=== PATIENT | female | born 1955 | race African-American/Black ===

== ENCOUNTER 2016-07-31 01:53 | Emergency (ER) | payer SELFPAY ==
[2016-07-31] MEDS ORDERED: IPRATROPIUM/ALBUTEROL SULFATE 3 ML AMPUL.NEB NEB ONE (02:17)
[2016-07-31] MEDS ORDERED: methylPREDNISolone SOD SUCC 125 MG/2 ML VIAL IVP ONE (02:17)
[2016-07-31] MEDS ORDERED: 0.9 % SODIUM CHLORIDE 1,000 ML IV ONE (02:20)
[2016-07-31] MEDS ORDERED: BUDESONIDE 0.5MG/2ML AMPUL.NEB NEB ONE (02:20)
[2016-07-31] MEDS ORDERED: 0.9 % SODIUM CHLORIDE 1,000 ML IV SCH (02:30)
[2016-07-31] MEDS ORDERED: BUDESONIDE 0.5MG/2ML AMPUL.NEB NEB SCH (03:00)
[2016-07-31 03:09] LABS: BASOPHILS % 0.5 (0.0-1.5); EOSINOPHILS % 6.8 % (0.0-6.8); LYMPHOCYTES # 1.7 # k/uL (0.6-4.0); MEAN CORPUSCULAR HEMOGLOBIN 26.8 pg (28.0-34.0); MONOCYTES # 0.2 # k/uL (0.0-0.9); MONOCYTES % 3.5 % (0.0-11.0); NEUTROPHILS # 3.5 # k/uL (1.4-7.7)
[2016-07-31 03:23] LABS: eGFR (African) > 60; eGFR (Non-African) 38
[2016-07-31] MEDS ORDERED: POTASSIUM CHLORIDE 20 MEQ TABLET.ER PO ONE (03:30)
[2016-07-31] MEDS ORDERED: CYCLOBENZAPRINE HCL 5 MG TABLET PO ONE (03:30)
[2016-07-31 04:36] VITALS: BP 162/100
--- NOTE | 2016-07-31 05:21 | Diagnostic Imaging Report ---
[facility] [address] [facility].[address] [address] ~ ~ ~ ~ Report Submission Date: Jul 31, 2016 3:04:21 AM [employer] DIRECT[employer] Patient ~ Study Name: TYREE MONET ~ Date: Jul 31, 2016 2:43:23 AM [employer] DIRECTOR ~ Modality Type: CR Gender: F ~ Description: CHEST : 59 ~ Institution: [facility] Physician: ROMEL LEOS ~ ~ ~ ~ Single view chest History: Productive cough Findings: The lungs are hyperinflated without pneumonia or pleural effusion. Heart size and pulmonary vascularity are normal. Osseous structures are unremarkable. There has been no change since the March 04, 2016 exam. Impression: Hyperinflation without change. ~ Electronically signed on Jul 31, 2016 3:04:21 AM [employer]EC[employer] DIRECTOR by: Anupam FLORES
--- NOTE | 2016-07-31 08:00 | ED Physician Documentation ---
Dyspnea - HISTORIAN Historian: patient - HPI Stated Complaint: shortness of breath Chief Complaint: Dyspnea Additional Information: copd, coughing Onset: days ago (2) Duration: continues in ED Initiating Event: other (unknown cause) Severity: moderate Exacerbated By: exertion Associated Symptoms: other (copd cough) Further Comments: no - ROS CONST: no problems EYES/ENT: none GI/: none NEURO/PSYCH: denies: headache MS/SKIN/LYMPH: none - PAST HX Lung Disease: COPD Cardiac Disease: none PE Risk Factors: none Surgeries/Procedures: none Other History: other (htn) Immunizations: referred to PCP Allergies/Adverse Reactions: Allergies Allergy/AdvReac Type Severity Reaction Status Date / Time No Known Allergies Allergy Verified 07/31/16 02:09 Home Medications: Ambulatory Orders Medication Instructions Recorded Nifedipine [Nifedipine Er] 30 mg PO DAILY u2 01/08/16 - SOCIAL HX Smoking History: non-smoker, quit greater than 1 year Alcohol Use: none Drug Use: none - FAMILY HX Family History: no significant history - VITAL SIGNS Vital Signs: Vital Signs Temp Pulse Resp BP Pulse Ox 98.2 F 78 16 162/100 93 07/31/16 04:34 07/31/16 04:34 07/31/16 04:34 07/31/16 04:34 07/31/16 04:34 - REVIEWED ASSESSMENTS Nursing Assessment Reviewed: Yes Vitals Reviewed: Yes Progress - Results/Orders Results/Orders: see orders - Progress Progress: pt improved with tx Critical Care Note - Critical Care Note Total Time (mins): 0 ED Results Lab/Radiology - Lab Results Lab Results: Lab Results 07/31/16 07/31/16 02:17 02:17 WBC 6.00 K/ul K/ul (4.00-12.00) RBC 4.43 M/ul M/ul (3.90-5.20) Hgb 11.9 g/dL L g/dL (12.0-16.0) Hct 35.8 % % (34.5-46.5) MCV 81.0 fl fl (80.0-100.0) MCH 26.8 pg L pg (28.0-34.0) MCHC 33.1 g/dL g/dL (30.0-36.0) RDW 13.1 % % (11.3-14.3) Plt Count 278 K/mm3 K/mm3 (130-400) Neut % (Auto) 58.4 % % (39.0-79.0) Lymph % (Auto) 29.2 % % (16.0-50.0) [place] % (Auto) 3.5 % % (0.0-11.0) Eos % (Auto) 6.8 % % (0.0-6.8) Baso % (Auto) 0.5 (0.0-1.5) Neut # 3.5 # k/uL # k/uL (1.4-7.7) Lymph # 1.7 # k/uL # k/uL (0.6-4.0) [place] # 0.2 # k/uL # k/uL (0.0-0.9) Eos # 0.4 # k/uL # k/uL (0.0-0.6) Baso # 0.0 # k/uL # k/uL (0.0-0.5) Reactive Lymphs % 1.7 % % (0.0-5.0) Reactive Lymphs # 0.1 # k/uL # k/uL (0.0-0.8) Sodium 141 mmol/L mmol/L (136-145) Potassium 3.2 mmol/L L mmol/L (3.5-5.0) Chloride 114 mmol/L H mmol/L (98-110) Carbon Dioxide 28 mmol/L mmol/L (20-32) BUN 14 mg/dL mg/dL (10-26) Creatinine 1.5 mg/dL mg/dL (0.4-1.5) Estimated Creat Clear 138 Est GFR ( Amer) > 60 (60 - ) Est GFR (Non-Af Amer) 38 L (60 - ) Glucose 132 mg/dL H mg/dL (70-99) Calcium 9.5 mg/dL mg/dL (8.5-10.5) Total Bilirubin 0.3 mg/dL mg/dL (0.2-1.2) AST 31 U/L U/L (0-41) ALT 20 U/L U/L (0-45) Alkaline Phosphatase 87 U/L U/L (46-116) Total Protein 6.3 g/dL g/dL (6.0-8.5) Albumin 3.2 g/dL g/dL (3.0-5.5) - Radiology Radiology Impressions: cxr copd - Orders Orders: ED Orders Category Date Time Status Place Saline Lock/IV Now Care 07/31/16 02:17 Active CHEST 1 VIEW [RAD] Routine Exams 07/31/16 Completed CBC/PLATELET/DIFF Routine Lab 07/31/16 02:17 Completed CMP Routine Lab 07/31/16 02:17 Completed 0.9 % Sodium Chloride [Normal Saline] 1,000 ml Med 07/31/16 02:30 Discontinued IV .Q1H 0.9 % Sodium Chloride [Normal Saline] 1,000 ml Med 07/31/16 02:20 Discontinued IV .STK-MED Budesonide [Pulmicort] Med 07/31/16 02:20 Discontinued 0.5 mg NEB .STK-MED ONE Budesonide [Pulmicort] Med 07/31/16 03:00 Discontinued 0.5 mg NEB BID Cyclobenzaprine HCl [Flexeril] Med 07/31/16 03:30 Discontinued 5 mg PO NOW ONE Ipratropium/Albuterol Sulfate [Duoneb] Med 07/31/16 02:17 Discontinued 3 ml NEB NOW ONE Potassium Chloride [Klor-Con M20] Med 07/31/16 03:30 Discontinued 40 meq PO NOW ONE methylPREDNISolone SOD SUCC [Solu-MEDROL] Med 07/31/16 02:17 Discontinued 125 mg IVP NOW ONE Dyspnea Physical Exam - EXAM General Appearance: no acute distress EENT: eye inspection normal, ENT inspection normal, pharynx normal, no signs of dehydration Neck: nml inspection Respiratory: respiratory distress (mild), wheezes CVS: reg. rate & rhythm, no murmur, no gallop, no friction rub, pulses full, pulses equal Abdomen: non-tender, no organomegaly, no distention, no ascites Skin: color nml, no rash Extremities: non-tender, normal range of motion, no evidence of injury, no edema Neuro/Psych: oriented x3, CN's nml as tested, motor nml, mood/affect nml Discharge Clincal Impression: COPD (chronic obstructive pulmonary disease) Qualifiers: COPD type: unspecified COPD Qualified Code(s): J44.9 - Chronic obstructive pulmonary disease, unspecified Home Medications: Ambulatory Orders Nifedipine [Nifedipine Er] 30 mg PO DAILY u2 01/08/16 Comments: discharged with scripts Condition: Stable Disposition: 01 HOME, SELF-CARE Decision to Admit: NO Decision Time: 04:30
== END 2016-07-31 03:45 | disposition home or self-care (01) ==
LOC: ED 01:53
DX: J44.9 Chronic obstructive pulmonary disease, unspecified (principal); Z87.891 Personal history of nicotine dependence
CPT/HCPCS: 71010; 80053; 85025; 94640; A9270; J2930; J7030; J7626; 96374; 99283; 99284; S1016

== ENCOUNTER 2016-08-24 14:58 | Outpatient (CLI) | payer BC ==
[2016-08-24 15:58] LABS: APPEARANCE,URINE Clear (CLEAR); COLOR,URINE Yellow (YELLOW); OCCULT BLOOD,URINE 2+ (NEGATIVE); UROBILINOGEN URINE 0.2 Eu (0.2-1.0)
[2016-08-24 16:12] LABS: AMORPHOUS SEDIMENT,UR FEW (NEGATIVE)
[2016-08-25 01:15] LABS: PROTEIN mg/dL >600 mg/dL
== END 2016-08-24 15:00 ==
LOC: NEPHRO 14:58
PROVIDERS: ATTEND Internal Medicine Nephrology
DX: N18.9 Chronic kidney disease, unspecified (principal); I10 Essential (primary) hypertension; J40 Bronchitis, not specified as acute or chronic
CPT/HCPCS: 81002; 82570; 84156; 99213

== ENCOUNTER 2016-09-14 12:50 | Outpatient (CLI) | payer BC ==
--- NOTE | 2016-09-15 10:56 | CONSULTATION REPORT ---
PULMONARY CONSULTATION NOTE REFERRING PHYSICIAN: Dr. Kyler Hernández CONSULTING PHYSICIAN: Farrukh Wolf MD REASON FOR CONSULT: Shortness of breath. PROBLEM LIST: 1. Asthmatic bronchitis with recurrent shortness of breath and remote history of tobacco abuse. 2. Significant and treated gastroesophageal reflux disease (GERD). 3. Excessive daytime sleepiness, snoring, and witnessed apnea, likely related to obstructive sleep apnea. 4. Chronic kidney disease. 5. Cannot rule out right heart failure with pulmonary hypertension and further workup with cardiac echo if needed. 6. Cough, likely related to GERD and asthma but cannot rule out side effects of lisinopril. 7. Hypertension, on nifedipine. HISTORY OF PRESENT ILLNESS: Sonia is a very pleasant 61-year-old lady who works at [employer]. She has been complaining of shortness of breath and cough toward the last few months and was diagnosed with COPD in the ER, she also has chronic kidney disease and is being followed by Dr. Hernández from [facility] where she had significant volume overload and had been on medication where her blood pressure had been much better controlled and she lost a significant amount of weight related to the volume overload over the last year. She continued to have shortness of breath with activity. She did have a cough and wheezing and chest tightness but she denies any fever or chills. No significant abdominal pain, although she did have some nausea and significant uncontrolled heartburn. She does have daytime sleepiness and fatigue and snoring and witnessed apnea but no weight changes. No trauma to the head. No significant hearing or vision loss or changes. She does have some postnasal drip but she has no sore throat and no thrush. No significant reported changes. PAST MEDICAL HISTORY: 1. Hypertension. 2. Chronic kidney disease. 3. Depression. MEDICATIONS: 1. Nifedipine 30 mg once a day. 2. Clonidine 0.1 mg 3 times a day. 3. Lisinopril 40 mg once a day. 4. Albuterol p.r.n. 5. Sertraline 25 mg once a day. ALLERGIES: No known drug allergies. SOCIAL HISTORY: Patient has a remote history of tobacco abuse of more than a 24-stho-molm history. She did quit a few years ago. She is not . 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 She has had no significant chemical or fume exposure. IMMUNIZATIONS: She did not have her pneumonia vaccine, nor her flu shot last year. FAMILY HISTORY: No significant family history of lung disease. REVIEW OF SYSTEMS: A 12-point review of systems was done and positive only for that listed above in the history of present illness. PHYSICAL EXAMINATION: Vital Signs: T: 97.3, R: 20, heart rate at 74, oxygen saturation is 95% on room air, BP: 149/101. General: Patient is alert, awake, and oriented x3. No significant distress. HEENT: PEERLA. Neck: Supple with full range of motion. Lungs: Prolonged expiratory phase and wheezing. No accessory muscle use. No crackles. Abdomen: Soft and nontender. Extremities: Lower extremities with no cyanosis, poor peripheral pulse. Neurologic Exam: Grossly intact. RADIOLOGY: Chest x-ray showed hyperplasia. No significant infiltration. Pulmonary function test is pending. ASSESSMENT: 1. Asthmatic bronchitis with recurrent shortness of breath and remote history of tobacco abuse. 2. Significant and treated gastroesophageal reflux disease (GERD). 3. Excessive daytime sleepiness, snoring, and witnessed apnea, likely related to obstructive sleep apnea. 4. Chronic kidney disease. 5. Cannot rule out right heart failure with pulmonary hypertension and further workup with cardiac echo if needed. 6. Cough, likely related to GERD and asthma but cannot rule out side effects of lisinopril. 7. Hypertension, on nifedipine. PLAN: This time the working diagnosis is asthmatic bronchitis. The patient is going to benefit from inhaled bronchodilator and inhaled steroids, as a maintenance, I am going to start her on Breo 200 mcg once a day and Incruse once a day. I am going to provide her with a coupon so it is not expensive and she can afford it for the next few months. My concern with her asthmatic bronchitis is that it is poorly controlled because of severe GERD. I am going to start her on omeprazole 40 mg once a day 40 minutes before breakfast for the next few days. If this does not improve her symptoms, we have to stop lisinopril as a possible cause for her significant cough. Regarding her snoring, excessive daytime sleepiness, hypertension and all other risk factors for possible sleep apnea, I am going to obtain a sleep study and the patient will benefit from a CPAP if gets a diagnosis of obstructive sleep apnea by a sleep study. I will follow up with Sonia in my Pulmonary office in 4 to 6 weeks with a pulmonary function test. cc: Dr. Kyler FLORES
== END 2016-09-14 12:52 ==
LOC: PULMONARY 12:50
PROVIDERS: ATTEND Internal Medicine Critical Care Medicine
DX: J44.9 Chronic obstructive pulmonary disease, unspecified (principal); I12.9 Hypertensive chronic kidney disease with stage 1 through stage 4 chronic kidney disease, or unspecified chronic kidney disease; N18.9 Chronic kidney disease, unspecified; Z87.891 Personal history of nicotine dependence
CPT/HCPCS: 99214

== ENCOUNTER 2016-09-21 07:03 | Outpatient (CLI) | payer BC ==
[2016-09-21] MEDS ORDERED: ALBUTEROL SULFATE 2.5 MG/3 ML AMPUL.NEB NEB ONE (07:18)
== END 2016-09-21 07:04 ==
LOC: RT 07:03
PROVIDERS: ATTEND Internal Medicine Critical Care Medicine
DX: J45.909 Unspecified asthma, uncomplicated (principal)
CPT/HCPCS: 94060

== ENCOUNTER 2016-10-02 14:48 | Emergency (ER) | payer BC ==
[2016-10-02] MEDS ORDERED: MAG HYDROX/AL HYDROX/SIMETH 30 ML, Lidocaine 2%Visc 15ml 20 MG, PHENobarb/HYOSCY/ATROPI... PO ONE ×3 (14:56)
[2016-10-02] MEDS ORDERED: MAGNESIUM HYDROXIDE/AL HYDROX 30 ML UDC PO ONE (15:07)
[2016-10-02] MEDS ORDERED: Lidocaine 2%Visc 15ml 20 MG/ML UDC ONE (15:07)
[2016-10-02 15:33] LABS: BASOPHILS % 0.6 (0.0-1.5); EOSINOPHILS % 3.3 % (0.0-6.8); LYMPHOCYTES # 2.8 # k/uL (0.6-4.0); MEAN CORPUSCULAR HEMOGLOBIN 27.2 pg (28.0-34.0); MONOCYTES # 0.3 # k/uL (0.0-0.9); MONOCYTES % 3.8 % (0.0-11.0); NEUTROPHILS # 4.9 # k/uL (1.4-7.7)
[2016-10-02 15:54] LABS: eGFR (African) > 60; eGFR (Non-African) > 60
--- NOTE | 2016-10-02 16:31 | ED Physician Documentation ---
General Adult - HISTORIAN Historian: patient - HPI Stated Complaint: chest pain Chief Complaint: General Adult Additional Information: CP since yesterday. Feels like charley horse. Saw ripple in right forearm when pain radiated there. Like previous CP episodes. - ROS CONST: no problems - PAST HX Past History: hypertension Allergies/Adverse Reactions: Allergies Allergy/AdvReac Type Severity Reaction Status Date / Time No Known Allergies Allergy Verified 10/02/16 15:21 Home Medications: Ambulatory Orders Medication Instructions Recorded Nifedipine [Nifedipine Er] 30 mg PO DAILY u2 01/08/16 Omeprazole 20 mg PO DAILY #30 capsule. 10/02/16 - SOCIAL HX Smoking History: cigarettes (quit about a year ago) - FAMILY HX Family History: No - VITAL SIGNS Vital Signs: Vital Signs Temp Pulse Resp BP Pulse Ox 98.2 F 70 22 160/112 97 10/02/16 15:16 10/02/16 16:00 10/02/16 15:16 10/02/16 15:16 10/02/16 16:00 - REVIEWED ASSESSMENTS Nursing Assessment Reviewed: Yes Vitals Reviewed: Yes Progress - Progress Progress: Chest AP single view portable at 1534 hours of October 02, 2016 . Clinical history: Chest pain and dyspnea Normal heart shadow. Clear lungs without acute infiltrate or pleural effusion. Prominent thoracic aorta. Normal bony thorax. Impression: Ectatic almost aneurysmal thoracic aorta seen on the prior study . No acute infiltrates or pleural effusion Electronically signed on Oct 02, 2016 3:47:08 PM CDT by: Vamshi Ryan Will CT chest because of radiologist's comment and patient's frequent visits to ER with CP complaints and variants. CT of the Chest without contrast CLINICAL HISTORY: Abnormal chest x-ray. TECHNIQUE: CT of the chest is performed in contiguous axial slices without the use of contrast. Sagittal and coronal reconstructions are performed by the technologist. FINDINGS: Lungs are free of coalescent infiltrate. Central airways are patent. Vascular calcification is present in the thoracic aorta. There is no evident aneurysm. There is no mediastinal or hilar mass or significant adenopathy. Large hepatic cysts are present in the visualized upper abdomen with the largest in the right hepatic lobe measuring 12 cm in size. IMPRESSION: Essentially negative CT of the chest without evidence of thoracic aneurysm. Hepatic cysts. Electronically signed on Oct 02, 2016 5:11:03 PM CDT by: Louis Escobar EKG: sinus rhythm 94 BPM, no ischemic changes ED Results Lab/Radiology - Lab Results Lab Results: Lab Results 10/02/16 10/02/16 10/02/16 15:10 15:09 15:09 WBC 8.50 K/ul K/ul (4.00-12.00) RBC 4.44 M/ul M/ul (3.90-5.20) Hgb 12.1 g/dL g/dL (12.0-16.0) Hct 36.5 % % (34.5-46.5) MCV 82.2 fl fl (80.0-100.0) MCH 27.2 pg L pg (28.0-34.0) MCHC 33.1 g/dL g/dL (30.0-36.0) RDW 13.7 % % (11.3-14.3) Plt Count 282 K/mm3 K/mm3 (130-400) Neut % (Auto) 57.0 % % (39.0-79.0) Lymph % (Auto) 32.8 % % (16.0-50.0) [place] % (Auto) 3.8 % % (0.0-11.0) Eos % (Auto) 3.3 % % (0.0-6.8) Baso % (Auto) 0.6 (0.0-1.5) Neut # 4.9 # k/uL # k/uL (1.4-7.7) Lymph # 2.8 # k/uL # k/uL (0.6-4.0) [place] # 0.3 # k/uL # k/uL (0.0-0.9) Eos # 0.3 # k/uL # k/uL (0.0-0.6) Baso # 0.0 # k/uL # k/uL (0.0-0.5) Reactive Lymphs % 2.5 % % (0.0-5.0) Reactive Lymphs # 0.2 # k/uL # k/uL (0.0-0.8) Sodium 146 mmol/L H mmol/L (136-145) Potassium 3.9 mmol/L mmol/L (3.5-5.0) Chloride 120 mmol/L H mmol/L (98-110) Carbon Dioxide 29 mmol/L mmol/L (20-32) BUN 15 mg/dL mg/dL (10-26) Creatinine 1.2 mg/dL mg/dL (0.4-1.5) Estimated Creat Clear 68 Est GFR ( Amer) > 60 (60 - ) Est GFR (Non-Af Amer) > 60 (60 - ) Glucose 108 mg/dL H mg/dL (70-99) Calcium 9.1 mg/dL mg/dL (8.5-10.5) Total Bilirubin 0.2 mg/dL mg/dL (0.2-1.2) AST 26 U/L U/L (0-41) ALT 17 U/L U/L (0-45) Alkaline Phosphatase 120 U/L H U/L (46-116) Troponin I < 0.03 ng/mL L ng/mL (0.03-0.06) Total Protein 6.0 g/dL g/dL (6.0-8.5) Albumin 3.2 g/dL g/dL (3.0-5.5) - Orders Orders: ED Orders Category Date Time Status Continuous EKG monitoring Q1H Care 10/02/16 14:56 Active Continuous Pulse Oximetry Q1H Care 10/02/16 14:56 Active CHEST 1 VIEW [RAD] Stat Exams 10/02/16 Taken CBC/PLATELET/DIFF Routine Lab 10/02/16 15:09 Completed CMP Routine Lab 10/02/16 15:09 Completed TROPONIN I (cTnI) Stat Lab 10/02/16 15:10 Completed URINALYSIS Routine Lab 10/02/16 Ordered Lidocaine 2%Visc 15ml [Xylocaine] Med 10/02/16 15:07 Discontinued 300 mg .ROUTE .STK-MED ONE Mag Hydrox/Al Hydrox/Simeth [Mylanta] 30 ml Med 10/02/16 14:56 Discontinued Lidocaine 2%Visc 15ml [Xylocaine] 20 mg PHENobarb/HYOSCY/ATROPINE/SCOP [] 10 ml PO NOW Magnesium Hydroxide/Al Hydrox [Maalox] Med 10/02/16 15:07 Discontinued 30 ml PO .STK-MED ONE EKG WITH COMPARISON Stat Ther 10/02/16 Ordered General Adult Physical Exam - PHYSICAL EXAM GENERAL APPEARANCE: mild distress EENT: eye inspection normal, ENT inspection normal NECK: normal inspection, supple, other (aj trap spasm, R>L, reported tender to palpation) RESPIRATORY: no resp distress, breath sounds normal CVS: reg rate & rhythm, heart sounds normal, no murmur ABDOMEN: soft, normal bowel sounds, non-tender RECTAL: deferred BACK: normal inspection, no CVA tenderness SKIN: warm/dry, normal color EXTREMITIES: normal range of motion (gait), no evidence of injury NEURO: CN's nml as tested, motor nml, sensation nml Discharge Clincal Impression: Non-cardiac chest pain, Trapezius muscle spasm Prescriptions: Omeprazole 20 mg PO DAILY #30 capsule. Home Medications: Ambulatory Orders Nifedipine [Nifedipine Er] 30 mg PO DAILY u2 01/08/16 Omeprazole 20 mg PO DAILY #30 capsule. 10/02/16 Condition: Good Disposition: HOME, SELF-CARE Decision to Admit: NO Decision Time: 17:18
[2016-10-02 17:24] VITALS: BP 151/99
--- NOTE | 2016-10-02 18:16 | Diagnostic Imaging Report ---
Name: TYREE MONET ~~ ~~ : 59 ~~ Acc #: [id number]~~ DOS: Oct 02, 2016 3:34:08 PM CDT ~~ Mod: CR ~~ Desc: CHEST 1 of 1 TYREE MUÑOZ - ER~ [address] [address] ~ ~ ~ ~ Report Submission Date: Oct 02, 2016 3:47:08 PM CDT Patient ~ Study Name: TYREE MONET ~ Date: Oct 02, 2016 3:34:08 PM CDT ~ Modality Type: CR Gender: F ~ Description: CHEST : 59 ~ Institution: [facility] Physician: TYREE MUÑOZ ~ ~ ~ ~ Chest AP single view portable at 1534 hours of October 02, 2016 . Clinical history: Chest pain and dyspnea Normal heart shadow. Clear lungs without acute infiltrate or pleural effusion. Prominent thoracic aorta. Normal bony thorax. Impression: Ectatic almost aneurysmal thoracic aorta seen on the prior study . No acute infiltrates or pleural effusion ~ Electronically signed on Oct 02, 2016 3:47:08 PM CDT by: Vamshi FLORES
--- NOTE | 2016-10-02 18:16 | Diagnostic Imaging Report ---
TYREE MUÑOZ~ [facility] [address] [facility] [address] [place], [place]. [address] ~ ~ ~ ~ Report Submission Date: Oct 02, 2016 5:11:03 PM CDT Patient ~ Study Name: TYREE MONET ~ Date: Oct 02, 2016 4:48:54 PM CDT ~ Modality Type: CT\SR Gender: F ~ Description: CT CHEST W/O CONTRAST : 59 ~ Institution: [facility] Physician: TYREE MUÑOZ ~ ~ ~ ~ CT of the Chest without contrast CLINICAL HISTORY: ~ Abnormal chest x-ray. ~ TECHNIQUE: ~ CT of the chest is performed in contiguous axial slices without the use of contrast. ~Sagittal and coronal reconstructions are performed by the technologist. FINDINGS: ~ Lungs are free of coalescent infiltrate. ~Central airways are patent. ~Vascular calcification is present in the thoracic aorta. ~There is no evident aneurysm. ~ There is no mediastinal or hilar mass or significant adenopathy. ~Large hepatic cysts are present in the visualized upper abdomen with the largest in the right hepatic lobe measuring 12 cm in size. ~ IMPRESSION: ~ Essentially negative CT of the chest without evidence of thoracic aneurysm. ~ Hepatic cysts. ~ Electronically signed on Oct 02, 2016 5:11:03 PM CDT by: Louis FLORES
[2016-10-03 05:33] LABS: APPEARANCE,URINE CLEAR (CLEAR); COLOR,URINE YELLOW (YELLOW); OCCULT BLOOD,URINE 3+ (NEGATIVE); PH URINE 7.5 (5.0 - 8.0); UROBILINOGEN URINE 0.2 Eu (0.2-1.0)
== END 2016-10-02 17:22 | disposition home or self-care (01) ==
LOC: ED 14:48
DX: R07.89 Other chest pain (principal)
CPT/HCPCS: 71010; 71250; 80053; 81002; 84484; 85025; 99283; A9270-GY

== ENCOUNTER 2016-10-08 07:46 | Outpatient (CLI) | payer BC ==
--- NOTE | 2016-10-11 14:08 | OP Clinic Progress Note ---
REFERRING PHYSICIAN: Dr. Kyler Hernández PROBLEM LIST: 1. Asthmatic bronchitis. 2. Gastroesophageal reflux disease (GERD). 3. Excessive daytime sleepiness, snoring, and witnessed apnea. 4. Chronic kidney disease. 5. Secondary pulmonary hypertension, likely related to kidney disease versus heart disease. SUBJECTIVE: Patient was seen and examined in the clinic today for follow up. She has significant improvement in her symptoms since her last clinic visit. I did provide her at the last clinic visit Breo 200 and she has been using it on a regular basis. She has had significant improvement in her symptoms. There is no significant cough any more, so she did not have to stop the lisinopril. Her sleep study is still pending; otherwise, she is able to function and she continues having excessive daytime sleepiness. She did have a CT scan of the chest on October 02 which was negative. There was no thoracic aneurysm. Past medical history, family history, and social history were reviewed from my previous note with no significant changes. PHYSICAL EXAMINATION: VITAL SIGNS: Weight: 160. T: 97.5, R: 20, heart rate of 68, oxygen saturation of 98% on room air, BP: 146/62. GENERAL: She is alert, awake, and oriented x3 in no acute distress. HEENT: PERRLA. LUNGS: Good air entry bilaterally. No wheezing. No crackles. No use of accessory muscles. ABDOMEN: No tenderness. Neurologic Exam: Grossly intact. DIAGNOSTIC STUDIES: CT scan of the chest reviewed from last week which showed no significant findings. ASSESSMENT: 1. Asthmatic bronchitis. 2. Gastroesophageal reflux disease (GERD). 3. Excessive daytime sleepiness, snoring, and witnessed apnea. 4. Chronic kidney disease. 5. Secondary pulmonary hypertension, likely related to kidney disease versus heart disease. PLAN: 1. Pulmonary function tests showed FEV1 of 1.5 liters, which is 77% predicted. Continue Breo 200 once a day and may need to add Spiriva later on. 2. Patient plans to have a sleep study on October 22 and will follow up with her in the sleep clinic. Likely, she is going to benefit from a CPAP. 3. Finally, I do recommend doing an echo as an outpatient to evaluate for pulmonary hypertension; otherwise, patient is to follow up in the Pulmonary Clinic within the next 3 to 4 months. cc: Dr. Kyler FLORES
== END 2016-10-08 07:47 ==
LOC: PULMONARY 07:46
PROVIDERS: ATTEND Internal Medicine Critical Care Medicine
DX: J45.909 Unspecified asthma, uncomplicated (principal); K21.9 Gastro-esophageal reflux disease without esophagitis; N18.9 Chronic kidney disease, unspecified; I27.2 Other secondary pulmonary hypertension; R06.81 Apnea, not elsewhere classified
CPT/HCPCS: 99214

== ENCOUNTER 2016-10-19 17:14 | Outpatient (CLI) | payer BC ==
[2016-10-19 17:27] LABS: APPEARANCE,URINE Clear (CLEAR); BASOPHILS % 0.6 (0.0-1.5); COLOR,URINE Yellow (YELLOW); EOSINOPHILS % 3.7 % (0.0-6.8); MEAN CORPUSCULAR HEMOGLOBIN 25.9 pg (28.0-34.0); MEAN CORPUSCULAR VOLUME 82.6 fl (80.0-100.0); MONOCYTES % 4.4 % (0.0-11.0); NEUTROPHILS # 4.1 # k/uL (1.4-7.7); OCCULT BLOOD,URINE 2+ (NEGATIVE); UROBILINOGEN URINE 0.2 Eu (0.2-1.0)
[2016-10-19 17:38] LABS: AMORPHOUS SEDIMENT,UR FEW (NEGATIVE)
[2016-10-19 17:47] LABS: eGFR (African) > 60; eGFR (Non-African) > 60
[2016-10-20 01:02] LABS: PROTEIN mg/dL >600 mg/dL
== END 2016-10-19 17:15 ==
LOC: LAB 17:14
PROVIDERS: ATTEND Internal Medicine Nephrology
DX: N05.5 Unspecified nephritic syndrome with diffuse mesangiocapillary glomerulonephritis (principal)
CPT/HCPCS: 36415; 80053; 81002; 82570; 83516; 84156; 85025

== ENCOUNTER 2016-11-02 14:11 | Outpatient (CLI) | payer BC | END 2016-11-02 14:12 | LOC: NEPHRO 14:11 | PROVIDERS: ATTEND Internal Medicine Nephrology | DX: N05.2 Unspecified nephritic syndrome with diffuse membranous glomerulonephritis (principal) | CPT/HCPCS: 99214 ==

== ENCOUNTER 2016-11-12 06:56 | Emergency (ER) | payer BC ==
[2016-11-12 07:36] VITALS: BP 153/99
--- NOTE | 2016-11-12 07:56 | ED Physician Documentation ---
Abdominal Pain - HISTORIAN Historian: patient - HPI Stated Complaint: abd pain Chief Complaint: Abdominal Pain Additonal Information: Lifted pt. recently and felt a tearing in the anterior abdomen. Since then off and on pain. Onset: days ago (15) Duration: sudden-onset, other (off and on, exacerbaed by liting) Timing: still present Context: denies: out of country travel, bad food, recent trauma Severity: moderate Quality: sharp Front/Back of Body, Lg (Color): 1 - pain Associated Symptoms: none Exacerbated by: other (lifting) Relieved by: other (laying supine) Further Comments: no - ROS CONST: no problems GI/: none CVS/RESP: none EYES/ENT: none MS/SKIN/LYMPH: none NEURO/PSYCH: none - SOCIAL HX Smoking History: non-smoker, quit less than 1 year Alcohol Use: none Drug Use: none - FAMILY HX Family History: no significant history - PAST HX Past History: other (crf) Ischemic Bowel Risk Factors: none Other History: hypertension, other (gerd) Surgeries/Procedures: hysterectomy Immunizations: referred to PCP Home Medications: Ambulatory Orders Medication Instructions Recorded Nifedipine [Nifedipine Er] 30 mg PO DAILY u2 01/08/16 Omeprazole 20 mg PO DAILY #30 capsule. 10/02/16 Allergies/Adverse Reactions: Allergies Allergy/AdvReac Type Severity Reaction Status Date / Time No Known Allergies Allergy Verified 11/12/16 07:28 - VITAL SIGNS Vital Signs: Vital Signs Temp Pulse Resp BP Pulse Ox 98.3 F 56 L 14 153/99 99 11/12/16 07:01 11/12/16 07:01 11/12/16 07:01 11/12/16 07:01 11/12/16 07:01 - REVIEWED ASSESSMENTS Nursing Assessment Reviewed: Yes Vitals Reviewed: Yes Progress - Results/Orders Results/Orders: no testing ordered - Progress Progress: pt. stable entire time in er Critical Care Note - Critical Care Note Total Time (mins): 0 ED Results Lab/Radiology - Lab Results Lab Results: no labs ordered - Radiology Radiology Impressions: no x-rays ordered Abdominal Pain Physical Exam - Physical Exam General Appearance: alert, mild distress EENT: eye inspection normal, ENT inspection normal, pharynx normal, no signs of dehydration, SHANTA, no nystagmus, TM's nml NECK: normal inspection, thyroid normal, supple RESPIRATORY: no resp distress, chest non-tender, breath sounds normal CVS: reg rate & rhythm, heart sounds normal, equal pulses, no murmur ABDOMEN: soft, no organomegaly, normal bowel sounds, tenderness (supraumbilical area), other (reduceable ventral abdominal hernia, approximately 2 cm) BACK: no CVA tenderness SKIN: warm/dry, normal color EXTREMITIES: non-tender, normal range of motion, no evidence of injury, no edema NEURO: oriented X3, CN's nml as tested, motor nml, sensation nml, mood/affect nml, cognition normal Vital Signs: Vital Signs Temp Pulse Resp BP Pulse Ox 98.3 F 56 L 14 153/99 99 11/12/16 07:01 11/12/16 07:01 11/12/16 07:01 11/12/16 07:01 11/12/16 07:01 Discharge Clincal Impression: ventral abdominal hernia Referrals: Vamshi Underwood MD [Primary Care Provider] - 2 Days Home Medications: Ambulatory Orders Nifedipine [Nifedipine Er] 30 mg PO DAILY u2 01/08/16 Omeprazole 20 mg PO DAILY #30 capsule. 10/02/16 Comments: Home with no new medications, recommend abdominal binder and referral to surgeon. Condition: Stable Disposition: HOME, SELF-CARE Decision to Admit: NO Decision Time: 07:50
== END 2016-11-12 07:55 | disposition home or self-care (01) ==
LOC: ED 06:56
DX: K43.9 Ventral hernia without obstruction or gangrene (principal)
CPT/HCPCS: 99283

== ENCOUNTER 2016-11-12 08:05 | Outpatient (CLI) | payer BC ==
[2016-11-12 07:36] VITALS: BP 153/99
[2016-11-12 08:35] LABS: APPEARANCE,URINE Clear (CLEAR); COLOR,URINE Yellow (YELLOW); OCCULT BLOOD,URINE 1+ (NEGATIVE); UROBILINOGEN URINE 0.2 Eu (0.2-1.0)
[2016-11-12 09:09] LABS: BASOPHILS % 0.8 (0.0-1.5); EOSINOPHILS % 3.6 % (0.0-6.8); MEAN CORPUSCULAR HEMOGLOBIN 27.5 pg (28.0-34.0); MEAN CORPUSCULAR VOLUME 83.3 fl (80.0-100.0); MONOCYTES % 4.1 % (0.0-11.0); NEUTROPHILS # 4.6 # k/uL (1.4-7.7)
[2016-11-12 09:41] LABS: eGFR (African) > 60; eGFR (Non-African) 41
[2016-11-12 10:48] LABS: AMORPHOUS SEDIMENT,UR FEW (NEGATIVE)
[2016-11-12 23:41] LABS: PROTEIN mg/dL >600 mg/dL
== END 2016-11-12 08:06 ==
LOC: LAB 08:05
PROVIDERS: ATTEND Internal Medicine Nephrology
DX: N05.5 Unspecified nephritic syndrome with diffuse mesangiocapillary glomerulonephritis (principal)
CPT/HCPCS: 36415; 80053; 81002; 82570; 84156; 85025

== ENCOUNTER 2016-11-18 14:36 | Emergency (ER) | payer BC, OTHER ==
[2016-11-18] MEDS ORDERED: FUROSEMIDE 40 MG/4 ML VIAL ONE (15:27)
[2016-11-18 15:33] LABS: BASOPHILS % 0.7 (0.0-1.5); EOSINOPHILS % 3.1 % (0.0-6.8); MEAN CORPUSCULAR HEMOGLOBIN 27.3 pg (28.0-34.0); MONOCYTES % 3.8 % (0.0-11.0); NEUTROPHILS # 5.1 # k/uL (1.4-7.7)
--- NOTE | 2016-11-18 15:33 | ED Physician Documentation ---
General Adult - HISTORIAN Historian: patient - HPI Stated Complaint: Bilat leg swelling Chief Complaint: General Adult Onset: days ago Timing: still present Severity: moderate Further Comments: yes (Pt is a 61 yo female with c/o b/l LE edema, worse than usual. Pt is rx'd Lasix 40 mg po bid for this problem, but did not take her last scheduled dose. Pt has chronic kidney disease and states that she has had a problem with proteinuria. Other medical problems include COPD and HTN. Pt states that she is concerned about her heart and has had "a catching in my chest." This sensation is brief or momentary. Pt denies history of heart disease.) - ROS CONST: no problems EYES/ENT: none CVS/RESP: other ("catching in chest") GI/: none MS/SKIN/LYMPH: leg swelling - PAST HX Past History: COPD, hypertension, other (Depression, chronic kidney disease) Surgeries/Procedures: hysterectomy Allergies/Adverse Reactions: Allergies Allergy/AdvReac Type Severity Reaction Status Date / Time No Known Allergies Allergy Verified 11/18/16 14:51 Home Medications: Ambulatory Orders Medication Instructions Recorded Nifedipine [Nifedipine Er] 30 mg PO DAILY u2 01/08/16 Omeprazole 20 mg PO DAILY #30 capsule. 10/02/16 Furosemide [Lasix] 40 mg PO BID 11/18/16 Potassium Chloride [Klor-Con M20] 20 mg PO DAILY 11/18/16 - SOCIAL HX Smoking History: quit greater than 1 year - FAMILY HX Family History: No - VITAL SIGNS Vital Signs: Vital Signs Temp Pulse Resp BP Pulse Ox 97.9 F 76 20 142/112 99 11/18/16 14:52 11/18/16 14:52 11/18/16 14:52 11/18/16 14:52 11/18/16 14:52 - REVIEWED ASSESSMENTS Nursing Assessment Reviewed: Yes Vitals Reviewed: Yes Progress - Progress Progress: Lasix 40 mg IV Urine output 200 cc LILLIAN hose applied in ER Pt c/o possible "gassy stomach" Simethicone 80 mg po in ER f/u pcp or urology/nephrology re: chronic proteinuria continue lasix, LILLIAN hose, and other home meds. - EKG/XRAY/CT EKG: NSR (HR=63; normal EKG.) XRAY: chest (Tortuous aorta; Left basilar atelectasis.) ED Results Lab/Radiology - Orders Orders: ED Orders Category Date Time Status Place Saline Lock/IV NOW Care 11/18/16 15:07 Active CHEST 1 VIEW [RAD] Stat Exams 11/18/16 15:07 Ordered BNP [NT-proBNP] Stat Lab 11/18/16 15:30 Received CBC/PLATELET/DIFF Routine Lab 11/18/16 15:30 Received CMP Routine Lab 11/18/16 15:30 Received UA [URINALYSIS] Routine Lab 11/18/16 Ordered Furosemide [Lasix] Med 11/18/16 16:00 Ordered 40 mg IVP 714 EKG WITH COMPARISON Stat Ther 11/18/16 15:07 Ordered General Adult Physical Exam - PHYSICAL EXAM GENERAL APPEARANCE: moderate distress EENT: pharynx normal NECK: normal inspection, supple RESPIRATORY: no resp distress, chest non-tender, breath sounds normal CVS: reg rate & rhythm, heart sounds normal ABDOMEN: soft, no organomegaly, normal bowel sounds BACK: normal inspection SKIN: warm/dry EXTREMITIES: edema (2+ b/l LE) NEURO: motor nml, sensation nml Discharge Clincal Impression: Lower extremity edema Qualifiers: Laterality: bilateral Qualified Code(s): R60.0 - Localized edema Proteinuria Qualifiers: Proteinuria type: unspecified Qualified Code(s): R80.9 - Proteinuria, unspecified Referrals: Vamshi Underwood MD [Primary Care Provider] - Home Medications: Ambulatory Orders Nifedipine [Nifedipine Er] 30 mg PO DAILY u2 01/08/16 Omeprazole 20 mg PO DAILY #30 capsule. 10/02/16 Furosemide [Lasix] 40 mg PO BID 11/18/16 Potassium Chloride [Klor-Con M20] 20 mg PO DAILY 11/18/16 Condition: Stable Disposition: 01 HOME, SELF-CARE Decision to Admit: NO Decision Time: 16:17
[2016-11-18 15:54] LABS: eGFR (African) > 60; eGFR (Non-African) > 60
[2016-11-18] MEDS ORDERED: FUROSEMIDE 40 MG/4 ML VIAL IVP SCH (16:00)
[2016-11-18] MEDS ORDERED: SIMETHICONE 80 MG TAB.CHEW PO STA (16:33)
[2016-11-18 16:54] VITALS: BP 139/91
--- NOTE | 2016-11-18 20:26 | Diagnostic Imaging Report ---
CHA LYLE~ [facility] [address] [facility] [address] [place], [place]. [address] ~ ~ ~ ~ Report Submission Date: November 18, 2016 4:07:30 PM CDT Patient ~ Study Name: TYREE MONET ~ Date: November 18, 2016 3:39:48 PM CDT ~ Modality Type: CR Gender: F ~ Description: CHEST : 59 ~ Institution: [facility] Physician: CHA LYLE ~ ~ ~ ~ Single frontal view of the chest History: Chest pain and discomfort, cough Findings: Comparison: October 02, 2016 Cardiac size upper limits of normal. Aorta is tortuous. No focal consolidation, pleural effusion or pneumothorax. There is minimal left basilar atelectasis. No acute osseous pathology Impression: Tortuous aorta Left basilar atelectasis ~ Electronically signed on November 18, 2016 4:07:30 PM CDT by: Simran FLORES
[2016-11-18 20:36] LABS: APPEARANCE,URINE CLEAR (CLEAR); COLOR,URINE YELLOW (YELLOW); OCCULT BLOOD,URINE 1+ (NEGATIVE)
[2016-11-18 20:37] LABS: PH URINE 6.5 (5.0 - 8.0); UROBILINOGEN URINE 0.2 Eu (0.2-1.0)
== END 2016-11-18 16:52 | disposition home or self-care (01) ==
LOC: ED 14:36
DX: R60.0 Localized edema (principal); R80.9 Proteinuria, unspecified
CPT/HCPCS: 71010; 80053; 81002; 83880; 85025; 93005; J1940; 96374; 99283; S1016

== ENCOUNTER 2016-11-25 11:05 | Outpatient (CLI) | payer OTHER | END 2016-11-25 11:06 | LOC: OUT 11:05 | PROVIDERS: ATTEND Colon & Rectal Surgery | DX: R19.00 Intra-abdominal and pelvic swelling, mass and lump, unspecified site (principal) | CPT/HCPCS: 99213 ==

== ENCOUNTER 2016-11-30 07:42 | Outpatient (CLI) | payer BC ==
--- NOTE | 2016-11-30 17:59 | Diagnostic Imaging Report ---
[facility] [address] [facility] [address] [place], [place]. [address] Report Submission Date: November 30, 2016 3:14:25 PM CDT Patient Study Name: TYREE MONET Date: November 30, 2016 8:05:47 AM CDT Modality Type: US Gender: F Description: US ABD LIMITED : 59 Institution: [facility] Physician: Radiology Ultrasound of the upper abdomen Clinical history: Palpable lump in the right mid abdomen just above the umbilicus. Technique: Real time sonography of the upper abdomen is performed in transverse and longitudinal views. Findings: There is a large slightly irregular hepatic cyst in the area of palpable abnormality. This cyst measures 10 cm in size. There are multiple smaller cysts within the liver. There is no abnormal blood flow within or adjacent to the cyst on color-flow imaging. Gallbladder is normally distended. There is no evident gallstone or gallbladder wall thickening and no pericholecystic fluid. The common bile duct measures 4 mm in diameter. There is no intrahepatic ductal dilatation. The right renal cortical echogenicity is mildly increased and is approximately equivalent to that of the adjacent liver. This is a nonspecific finding. Corticomedullary differentiation is preserved. There is no hydronephrosis. Impression: 1. Multiple hepatic cysts including a 10 cm cyst that is in the area that the patient has a palpable lump. 2. Increased right renal cortical echogenicity that is a nonspecific finding. Electronically signed on November 30, 2016 3:14:25 PM CDT by: Louis FLORES
--- NOTE | 2016-11-30 17:59 | Diagnostic Imaging Report ---
[facility] [place] [facility] [address] [facility] [address] [place], [place]. [address] Report Submission Date: November 30, 2016 3:14:25 PM CDT Patient Study Name: TYREE MONET Date: November 30, 2016 8:05:47 AM CDT Modality Type: US Gender: F Description: US ABD LIMITED : 59 Institution: [facility] [place] [facility] Physician: Radiology Ultrasound of the upper abdomen Clinical history: Palpable lump in the right mid abdomen just above the umbilicus. Technique: Real time sonography of the upper abdomen is performed in transverse and longitudinal views. Findings: There is a large slightly irregular hepatic cyst in the area of palpable abnormality. This cyst measures 10 cm in size. There are multiple smaller cysts within the liver. There is no abnormal blood flow within or adjacent to the cyst on color-flow imaging. Gallbladder is normally distended. There is no evident gallstone or gallbladder wall thickening and no pericholecystic fluid. The common bile duct measures 4 mm in diameter. There is no intrahepatic ductal dilatation. The right renal cortical echogenicity is mildly increased and is approximately equivalent to that of the adjacent liver. This is a nonspecific finding. Corticomedullary differentiation is preserved. There is no hydronephrosis. Impression: 1. Multiple hepatic cysts including a 10 cm cyst that is in the area that the patient has a palpable lump. 2. Increased right renal cortical echogenicity that is a nonspecific finding. Electronically signed on November 30, 2016 3:14:25 PM CDT by: Louis FLORES
== END 2016-11-30 07:43 ==
LOC: RAD 07:42
PROVIDERS: ATTEND Colon & Rectal Surgery
DX: Q61.02 Congenital multiple renal cysts (principal); R19.00 Intra-abdominal and pelvic swelling, mass and lump, unspecified site
CPT/HCPCS: 76705

== ENCOUNTER 2016-12-03 07:07 | Outpatient (CLI) | payer BC, OTHER ==
--- NOTE | 2016-12-03 15:43 | Diagnostic Imaging Report ---
LOUIE WOOD [facility] [address] [facility] [address] [place] [address]. [id number] Report Submission Date: Dec 03, 2016 3:15:02 PM CDT Patient Study Name: TYREE MONET Date: Dec 03, 2016 7:27:57 AM CDT Modality Type: CT\SR Gender: F Description: CT ABD & PELVIS W/ CON : 59 Institution: [facility] Physician: LOUIE WOOD Computed tomography of the abdomen and pelvis with contrast History: Followup cystic liver lesions seen on ultrasound Findings: Transverse abdomen and pelvis sections are obtained after 92 mL intravenous omnipaque 350.. Numerous liver cysts are present, the largest measuring up to 12.3 cm in the liver dome and 11.2 cm in the caudal margin of the liver. The pancreas, kidneys , spleen, and adrenals are unremarkable. Mild atherosclerotic disease, mild multilevel lumbar spondylosis, and moderate colonic stool are observed. Small bowel loops are unremarkable. The pelvic sections reveal moderate rectosigmoid stool and a normal appendix. The urinary bladder is empty. Hysterectomy has been performed. Impression: 1. Polycystic liver disease. 2. Constipation. 3. Hysterectomy, Lumbar spondylosis, and atherosclerosis. Electronically signed on Dec 03, 2016 3:15:02 PM CDT by: Anupam FLORES
== END 2016-12-03 07:10 ==
LOC: RAD 07:07
PROVIDERS: ATTEND Colon & Rectal Surgery
DX: K76.89 Other specified diseases of liver (principal)
CPT/HCPCS: 74177; Q9966

== ENCOUNTER 2016-12-06 14:06 | Outpatient (CLI) | payer BC, OTHER ==
[2016-12-06 14:25] LABS: BASOPHILS % 0.6 (0.0-1.5); MEAN CORPUSCULAR HEMOGLOBIN 27.5 pg (28.0-34.0); MEAN CORPUSCULAR VOLUME 80.3 fl (80.0-100.0); MONOCYTES % 3.5 % (0.0-11.0); NEUTROPHILS # 7.7 # k/uL (1.4-7.7)
[2016-12-06 14:30] LABS: APPEARANCE,URINE Clear (CLEAR); COLOR,URINE Yellow (YELLOW); OCCULT BLOOD,URINE 2+ (NEGATIVE); UROBILINOGEN URINE 0.2 Eu (0.2-1.0)
[2016-12-06 14:42] LABS: AMORPHOUS SEDIMENT,UR FEW (NEGATIVE)
[2016-12-06 14:46] LABS: eGFR (African) > 60; eGFR (Non-African) 38
[2016-12-07 05:31] LABS: PROTEIN mg/dL 525 mg/dL
== END 2016-12-06 14:07 ==
LOC: LAB 14:06
PROVIDERS: ATTEND Internal Medicine Nephrology
DX: N05.9 Unspecified nephritic syndrome with unspecified morphologic changes (principal)
CPT/HCPCS: 36415; 80053; 81002; 82570; 84156; 85025

== ENCOUNTER 2016-12-07 13:18 | Outpatient (CLI) | payer BC, OTHER | END 2016-12-07 13:20 | LOC: NEPHRO 13:18 | PROVIDERS: ATTEND Internal Medicine Nephrology | DX: J02.9 Acute pharyngitis, unspecified (principal) | CPT/HCPCS: 99213 ==

== ENCOUNTER 2016-12-09 11:27 | Outpatient (CLI) | payer BC, OTHER | END 2016-12-09 11:30 | LOC: OUT 11:27 | PROVIDERS: ATTEND Colon & Rectal Surgery | DX: Q44.6 Cystic disease of liver (principal) | CPT/HCPCS: 99213 ==

== ENCOUNTER 2017-01-20 10:18 | Outpatient (CLI) | payer BC, OTHER | END 2017-01-20 10:20 | LOC: OUT 10:18 | PROVIDERS: ATTEND Colon & Rectal Surgery | DX: Z09 Encounter for follow-up examination after completed treatment for conditions other than malignant neoplasm (principal); Z98.890 Other specified postprocedural states | CPT/HCPCS: 99213 ==

== ENCOUNTER 2017-03-20 11:04 | Emergency (ER) | payer OTHER ==
[2017-03-20] MEDS ORDERED: IPRATROPIUM/ALBUTEROL SULFATE 3 ML AMPUL.NEB NEB ONE ×3 (11:17→13:19)
[2017-03-20] MEDS ORDERED: methylPREDNISolone SOD SUCC 125 MG/2 ML VIAL IVP PRN (11:24)
--- NOTE | 2017-03-20 11:29 | ED Physician Documentation ---
Upper Respiratory Symptoms - HISTORIAN Historian: patient, other (sister) - HPI Chief Complaint: Dyspnea Additional Information: pt here w/cough weakness and leg edema-prod uctive cough greenish mucoid past 10 days prog Onset: days ago (10 progressive) Duration: intermittent episodes Context: recent foreign travel, insect bite(s) Severity: moderate Associated Symptoms: sinus pain, productive cough, shortness of breath. denies : fever, chills, bloody cough Further Comments: yes (nocturia 3-4x/noct---also leg edema) - ROS CONST/EYES: denies: eye redness CVS/RESP: shortness of breath LYMPH: leg swelling, ankle swelling GI/: none - PAST HX Lung Disease: asthma, COPD PE Risk Factors: hypertension Surgeries/Procedures: hysterectomy Allergies/Adverse Reactions: Allergies Allergy/AdvReac Type Severity Reaction Status Date / Time No Known Allergies Allergy Verified 03/20/17 11:55 Home Medications: Ambulatory Orders Medication Instructions Recorded Nifedipine [Nifedipine Er] 30 mg PO DAILY u2 01/08/16 - SOCIAL HX Smoking History: non-smoker ( quit more than 1 yr ago) Alcohol Use: none Drug Use: none - FAMILY HX Family History: no significant history - VITAL SIGNS Vital Signs: Vital Signs Temp Pulse Resp BP Pulse Ox 99.0 F 76 22 139/98 99 03/20/17 11:04 03/20/17 11:04 03/20/17 11:04 03/20/17 11:04 03/20/17 11:04 - REVIEWED ASSESSMENTS Nursing Assessment Reviewed: Yes Vitals Reviewed: Yes ED Results Lab/Radiology - Lab Results Lab Results: Lab Results 03/20/17 03/20/17 03/20/17 11:35 11:34 11:34 WBC RBC Hgb Hct MCV MCH MCHC RDW Plt Count Neut % (Auto) Lymph % (Auto) Erie % (Auto) Eos % (Auto) Baso % (Auto) Neut # (Auto) Lymph # (Auto) [place] # (Auto) Eos # (Auto) Baso # (Auto) Reactive Lymphs % Reactive Lymphs # Sodium 145 mmol/L mmol/L (136-145) Potassium 3.6 mmol/L mmol/L (3.5-5.0) Chloride 111 mmol/L H mmol/L (98-110) Carbon Dioxide 28 mmol/L mmol/L (20-32) BUN 15 mg/dL mg/dL (10-26) Creatinine 1.3 mg/dL mg/dL (0.4-1.5) Estimated Creat Clear 62 Est GFR ( Amer) > 60 (60 - ) Est GFR (Non-Af Amer) 44 L (60 - ) Glucose 100 mg/dL H mg/dL (70-99) Calcium 8.7 mg/dL mg/dL (8.5-10.5) Total Bilirubin 0.3 mg/dL mg/dL (0.2-1.2) AST 26 U/L U/L (0-41) ALT 14 U/L U/L (0-45) Alkaline Phosphatase 116 U/L U/L (46-116) Troponin I < 0.03 ng/mL L ng/mL (0.03-0.06) NT-Pro-B Natriuret Pep 365.2 pg/mL H pg/mL (15.0-125.0) Total Protein 6.2 g/dL g/dL (6.0-8.5) Albumin 3.2 g/dL g/dL (3.0-5.5) 03/20/17 11:34 WBC 8.00 K/ul K/ul (4.00-12.00) RBC 3.89 M/ul L M/ul (3.90-5.20) Hgb 10.5 g/dL L g/dL (12.0-16.0) Hct 30.5 % L % (34.5-46.5) MCV 78.5 fl L fl (80.0-100.0) MCH 26.9 pg L pg (28.0-34.0) MCHC 34.3 g/dL g/dL (30.0-36.0) RDW 13.8 % % (11.3-14.3) Plt Count 342 K/mm3 K/mm3 (130-400) Neut % (Auto) 50.7 % % (39.0-79.0) Lymph % (Auto) 35.2 % % (16.0-50.0) Erie % (Auto) 3.6 % % (0.0-11.0) Eos % (Auto) 8.5 % H % (0.0-6.8) Baso % (Auto) 1.1 (0.0-1.5) Neut # (Auto) 4.0 # k/uL # k/uL (1.4-7.7) Lymph # (Auto) 2.8 # k/uL # k/uL (0.6-4.0) Erie # (Auto) 0.3 # k/uL # k/uL (0.0-0.9) Eos # (Auto) 0.7 # k/uL H # k/uL (0.0-0.6) Baso # (Auto) 0.1 # k/uL # k/uL (0.0-0.5) Reactive Lymphs % 1.0 % % (0.0-5.0) Reactive Lymphs # 0.1 # k/uL # k/uL (0.0-0.8) Sodium Potassium Chloride Carbon Dioxide BUN Creatinine Estimated Creat Clear Est GFR ( Amer) Est GFR (Non-Af Amer) Glucose Calcium Total Bilirubin AST ALT Alkaline Phosphatase Troponin I NT-Pro-B Natriuret Pep Total Protein Albumin - Radiology Radiology Impressions: cxr= con gestion and cardiomegally---radiologists calls ess normal cxr. her breathing has improved w/the duonen and we will give her one more - Orders Orders: ED Orders Category Date Time Status Place IV Lock 1T Care 03/20/17 11:26 Active CHEST P.A.&LAT 2 VIEWS [RAD] Stat Exams 03/20/17 Completed BNP [NT-proBNP] Stat Lab 03/20/17 11:34 Completed CBC/PLATELET/DIFF Routine Lab 03/20/17 11:34 Completed CMP Routine Lab 03/20/17 11:34 Completed TROPONIN I (cTnI) Stat Lab 03/20/17 11:35 Completed Ipratropium/Albuterol Sulfate [Duoneb] Med 03/20/17 11:17 Discontinued 3 ml NEB .STK-MED ONE Ipratropium/Albuterol Sulfate [Duoneb] Med 03/20/17 11:25 Discontinued 3 ml NEB NOW ONE methylPREDNISolone SOD SUCC [Solu-MEDROL] Med 03/20/17 11:24 Ordered 125 mg IVP NOW PRN EKG WITH COMPARISON Stat Ther 03/20/17 Ordered Upper Respiratory Symptoms - EXAM General Appearance: moderate distress EENT: eyes nml inspection, pain over sinuses, nose nml, pharynx nml. No: TM erythema Neck: normal inspection, thyroid normal. No: lymphadenopathy Respiratory: no resp. distress, decreased air movement, wheezes, rales, rhonchi. No: breath sounds nml Abdomen: non-tender CVS: reg rate & rhythm, heart sounds normal Skin: color nml, no rash, warm,dry. No: cyanosis, diaphoresis, pallor Extremities: non-tender, edema Neuro/Psych: oriented x3, neuro intact, mood/affect nml Discharge Clincal Impression: acute exaberation copd, borderline CHF, renal failure, acute exaberation asthma , ecg changes uncertain significance Referrals: Vamshi Underwood MD [Primary Care Provider] - 2 Days Comments: pt home on azithro plus rec see renal dr and cardiologists soon - sent labs and ecg's w/pt Condition: Fair Disposition: 01 HOME, SELF-CARE Decision to Admit: NO Decision Time: 13:25
[2017-03-20 11:47] LABS: BASOPHILS % 1.1 (0.0-1.5); EOSINOPHILS % 8.5 % (0.0-6.8); MEAN CORPUSCULAR HEMOGLOBIN 26.9 pg (28.0-34.0); MEAN CORPUSCULAR VOLUME 78.5 fl (80.0-100.0); MONOCYTES % 3.6 % (0.0-11.0)
[2017-03-20] MEDS ORDERED: methylPREDNISolone SOD SUCC 125 MG/2 ML VIAL ONE (11:59)
[2017-03-20 12:00] LABS: eGFR (African) > 60; eGFR (Non-African) 44
--- NOTE | 2017-03-20 12:38 | Diagnostic Imaging Report ---
[facility] [address] [facility] [address] [place], [place]. [address] Report Submission Date: Mar 20, 2017 12:07:54 PM CDT Patient Study Name: TYREE MONET Date: Mar 20, 2017 11:45:44 AM CDT Modality Type: CR Gender: F Description: CHEST : 59 Institution: [facility] Physician: SAMEER BOLAÑOS - ER Examination: PA and lateral chest. History: Evaluate lung plascencia. Comparison exam: and November 2016 Findings: PA lateral chest demonstrate a normal cardiac silhouette. Tortuous aorta. No focal infiltrate. No effusion. No blunting of the costophrenic margins. Osseous structures are appropriate for age. Impression: No acute pulmonary process. Electronically signed on Mar 20, 2017 12:07:54 PM CDT by: Alex FLORES
[2017-03-20 14:15] VITALS: BP 157/96
== END 2017-03-20 14:29 | disposition home or self-care (01) ==
LOC: ED 11:04
DX: J44.1 Chronic obstructive pulmonary disease with (acute) exacerbation (principal); N19 Unspecified kidney failure; J45.901 Unspecified asthma with (acute) exacerbation
CPT/HCPCS: 71020; 80053; 83880; 84484; 85025; J2930; 96374; 99283; S1016

== ENCOUNTER 2017-03-29 14:21 | Outpatient (CLI) | payer OTHER | END 2017-03-29 14:22 | LOC: NEPHRO 14:21 | PROVIDERS: ATTEND Internal Medicine Nephrology | DX: N05.9 Unspecified nephritic syndrome with unspecified morphologic changes (principal) | CPT/HCPCS: 99213 ==

== ENCOUNTER 2017-04-05 15:04 | Outpatient (CLI) | payer OTHER | END 2017-04-05 15:05 | LOC: NEPHRO 15:04 | PROVIDERS: ATTEND Internal Medicine Nephrology | DX: N04.2 Nephrotic syndrome with diffuse membranous glomerulonephritis (principal) | CPT/HCPCS: 99213 ==

== ENCOUNTER 2017-04-07 11:10 | Outpatient (CLI) | payer OTHER | END 2017-04-07 11:11 | LOC: OUT 11:10 | PROVIDERS: ATTEND Colon & Rectal Surgery | DX: Z48.89 Encounter for other specified surgical aftercare (principal); K76.89 Other specified diseases of liver | CPT/HCPCS: 99212 ==

== ENCOUNTER 2017-05-13 10:47 | Outpatient (CLI) | payer BC, OTHER ==
--- NOTE | 2017-05-18 12:30 | CONSULTATION REPORT ---
PRIMARY CARE PHYSICIAN: Dr. Vamshi Underwood YOUTH ACCOMMODATION SUPPORT WORKER: Dr. Kyler Hernández CONSULTING PHYSICIAN: Pam Sanchez MD CHIEF COMPLAINT: "I am returning for my pulmonary visit to see how my breathing is." PROBLEM LIST: 1. Chronic obstructive pulmonary disease (COPD)/asthma. 2. Hypertension. 3. Chronic kidney disease: Membranous glomerulonephritis, nephrotic syndrome. 4. Gastroesophageal reflux disease (GERD). 5. Cerebrovascular accident (CVA): Right hemiparesis, central retinal artery occlusion, 11/2013. 6. Depression. 7. Liver cyst surgically removed: [facility] on 01-13-17. HISTORY OF PRESENT ILLNESS: Patient had been seen twice by Dr. Wolf. The last time was on October 08, 2016. He gave the patient a diagnosis of asthmatic bronchitis and treated her with Breo and Incruse. He also suggested she take omeprazole 40 mg daily and suggested that she undergo a sleep study and PFTs. She also was recently seen in the emergency department on March 20, 2017. Her diagnosis was an acute exacerbation of COPD, acute exacerbation of asthma, borderline CHF, and renal failure. She was treated with DuoNeb nebulizer x2 and 1 dose of methylprednisolone 125 mg IV push. She was sent home at that time on azithromycin. Patient returns today and states she is not on Breo or Incruse and is on Advair that she takes just once a day. She states she is not short of breath. She is not wheezy. She also does have an albuterol nebulizer at home that she takes twice a day. She no longer takes lisinopril. She states that she does have chest pain and that she gets frequent episodes of chest pain. It tends to be sharp and substernal. She denies symptoms of reflux. She is not on prednisone. There has been no hemoptysis. There is no PND. She does have edema, which she feels is slightly worse. Her weight has been stable. She states that her daytime sleepiness has improved. She states that she no longer smokes but had a significant smoking history for at least 15 to 20 years. She also states that she recently in January underwent abdominal surgery for removal of a large liver cyst. This was done at [facility] without any complications. ALLERGIES: No known allergies. MEDICATIONS: 1. Nifedipine 30 mg daily. 2. Clonidine 0.1 mg t.i.d. 3. Advair (dose unknown). 4. Lasix p.r.n., mainly on Tuesday's and Tuesday's. 5. Albuterol nebulizer as needed. PHYSICAL EXAMINATION: GENERAL: This is a well-developed, well-nourished female in no acute distress speaking in full sentences. VITAL SIGNS: BP: 140/96, P: 67, R: 20, T: 97.2. Room air oxygen saturation is 96%. Height: 5 feet 3 inches. Weight: 167 pounds. BMI is 29.6. Oropharynx: Clear. No thrush. Neck: Supple. No adenopathy. Lungs: Bilateral occasional wheeze. Cardiac: Rate and rhythm are regular. No murmur, rubs, or gallops. Abdomen: Soft and nontender. Extremities: No cyanosis or clubbing. There is 1+ edema. Neurologic: Alert and oriented x3. Normal gait. Grossly nonfocal. IMAGING: All imaging independently reviewed by me personally. 1. PFTs: Just spirometry on 09-21-16: Patient had a difficult time performing the test. The waveforms are definitely not smooth and not consistent of the best waveform, FVC was 1.89 liters, 77% of predicted; FEV1 was 1.55 liters, 77% of predicted; FEV1/FVC was 0.82, 101% of predicted. There is a bronchodilator response. 2. Chest CT scan on 10-02-16: Atelectasis at right base. No thoracic aneurysm. Large hepatic cyst. 3. Chest x-ray on 03-20-17: Flat diaphragm. No infiltrates. ASSESSMENT AND PLAN: PROBLEM #1: Chronic obstructive pulmonary disease (COPD)/asthma. Patient definitely does not like to hear the term COPD. She had stated that all she has is asthma. I have pointed out to her that she had a significant smoking history, so there likely could be a component of some emphysema along with her asthma. PLAN: 1. Increase Advair to b.i.d. 2. Bring all medicines in on next visit in a bag. 3. Obtain the flu shot. PROBLEM #2: Excessive daytime sleepiness. Patient states that this is no longer a problem and has not and has no desire to obtain a sleep study. PLAN: Monitor for daytime sleepiness in the future. PROBLEM #3: Chest pain. It does not sound like angina, however, I have instructed the patient that she does need to go to the emergency department (ED) if her chest pain reoccurs. PLAN: 1. Go to ED for recurrent chest pain. 2. Return to clinic in 3 months. cc: Dr. Vamshi FLORES
== END 2017-05-13 10:50 ==
LOC: PULMONARY 10:47
PROVIDERS: ATTEND Internal Medicine Pulmonary Disease
DX: J44.9 Chronic obstructive pulmonary disease, unspecified (principal); R40.0 Somnolence; R07.9 Chest pain, unspecified
CPT/HCPCS: 99213; 99214

== ENCOUNTER 2017-05-28 18:46 | Emergency (ER) | payer SELFPAY ==
[2017-05-28] MEDS ORDERED: AZITHROMYCIN 250 MG TABLET PO ONE (19:14)
--- NOTE | 2017-05-28 19:20 | ED Physician Documentation ---
Upper Respiratory Symptoms - HISTORIAN Historian: patient, friend - HPI Stated Complaint: Cough Chief Complaint: Cough/ Upper Respiratory Additional Information: 3 weeks cough prod yellowish and now greenish mucoid. no known fever/chills. no n/e/d. excess fatigue. no prev tx this episode Onset: other (3 weeks) Duration: constant, intermittent episodes Context: recent foreign travel. denies: insect bite(s) Severity: moderate Associated Symptoms: hoarseness, productive cough, shortness of breath, hurts to breathe. denies: fever, chills, sweating, earache, sinus pain Worsened by Deep Breath: Yes - ROS CONST/EYES: weakness CVS/RESP: shortness of breath LYMPH: leg swelling (on occacion - takes prn diuretic) GI/: none NEURO/PSYCH: denies: fainting, dizziness, confusion MS/SKIN: denies: joint pain, muscle aches, rash - PAST HX Lung Disease: asthma, COPD, other (htn) PE Risk Factors: hypertension Other History: other (cva) Surgeries/Procedures: hysterectomy Allergies/Adverse Reactions: Allergies Allergy/AdvReac Type Severity Reaction Status Date / Time No Known Allergies Allergy Verified 03/20/17 11:55 Home Medications: Ambulatory Orders Medication Instructions Recorded Nifedipine [Nifedipine Er] 30 mg PO DAILY u2 01/08/16 Azithromycin 500 mg PO D #5 tablet 05/28/17 - SOCIAL HX Smoking History: quit less than 1 year Alcohol Use: none Drug Use: none - FAMILY HX Family History: no significant history - VITAL SIGNS Vital Signs: Vital Signs Temp Pulse Resp BP Pulse Ox 97.6 F 67 18 178/116 99 05/28/17 18:50 05/28/17 18:50 05/28/17 18:50 05/28/17 18:50 05/28/17 18:50 - REVIEWED ASSESSMENTS Nursing Assessment Reviewed: Yes Vitals Reviewed: Yes ED Results Lab/Radiology - Orders Orders: ED Orders Category Date Time Status Azithromycin [Zithromax] Med 05/28/17 19:14 Discontinued 500 mg PO NOW ONE Upper Respiratory Symptoms - EXAM General Appearance: moderate distress EENT: eyes nml inspection Neck: normal inspection, supple Respiratory: speaks full sentences, prolonged expirations, wheezes, rales, rhonchi, stridor. No: breath sounds nml, respiratory distress, no pleuritic chest pain, resp. fatigue Abdomen: non-tender, no distention CVS: reg rate & rhythm, heart sounds normal Skin: color nml, no rash, warm,dry. No: cyanosis, diaphoresis, pallor Extremities: non-tender, normal range of motion Neuro/Psych: oriented x3, mood/affect nml Discharge Clincal Impression: acute exaberation copd, prolonged bronchitis Prescriptions: Azithromycin 500 mg PO D #5 tablet Referrals: Vamshi Underwood MD [Primary Care Provider] - 2 Days Comments: discussed tx for HTN pt says no "I WILL TAKE MY bp MEDS WHEN I GET HOME Condition: Good Disposition: HOME, SELF-CARE Decision to Admit: NO Decision Time: 19:26
[2017-05-28 19:32] VITALS: BP 175/98
== END 2017-05-28 19:30 | disposition home or self-care (01) ==
LOC: ED 18:46
DX: J44.1 Chronic obstructive pulmonary disease with (acute) exacerbation (principal); J40 Bronchitis, not specified as acute or chronic
CPT/HCPCS: 99283

== ENCOUNTER 2017-06-21 14:23 | Outpatient (CLI) | payer OTHER | END 2017-06-21 14:24 | LOC: NEPHRO 14:23 | PROVIDERS: ATTEND Internal Medicine Nephrology | DX: N05.2 Unspecified nephritic syndrome with diffuse membranous glomerulonephritis (principal); N18.9 Chronic kidney disease, unspecified; I10 Essential (primary) hypertension | CPT/HCPCS: 99213 ==

== ENCOUNTER 2017-06-22 10:14 | Outpatient (CLI) | payer OTHER ==
[2017-06-22 10:35] LABS: BASOPHILS % 0.8 (0.0-1.5); EOSINOPHILS % 7.9 % (0.0-6.8); MEAN CORPUSCULAR HEMOGLOBIN 27.2 pg (28.0-34.0); MEAN CORPUSCULAR VOLUME 80.3 fl (80.0-100.0); MONOCYTES % 5.1 % (0.0-11.0); NEUTROPHILS # 3.1 # k/uL (1.4-7.7)
[2017-06-22 10:39] LABS: APPEARANCE,URINE Clear (CLEAR); COLOR,URINE Yellow (YELLOW); OCCULT BLOOD,URINE 2+ (NEGATIVE); UROBILINOGEN URINE 0.2 Eu (0.2-1.0)
[2017-06-22 11:02] LABS: eGFR (African) 39; eGFR (Non-African) 33
[2017-06-22 11:04] LABS: AMORPHOUS SEDIMENT,UR FEW (NEGATIVE)
[2017-06-23 04:21] LABS: PROTEIN mg/dL >600 mg/dL
== END 2017-06-22 10:15 ==
LOC: LAB 10:14
PROVIDERS: ATTEND Internal Medicine Nephrology
DX: N05.2 Unspecified nephritic syndrome with diffuse membranous glomerulonephritis (principal); N18.9 Chronic kidney disease, unspecified; I10 Essential (primary) hypertension
CPT/HCPCS: 36415; 80053; 81002; 82570; 83970; 84100; 84156; 85025

== ENCOUNTER 2017-07-07 16:28 | Emergency (ER) | payer OTHER ==
--- NOTE | 2017-07-07 16:31 | ED Physician Documentation ---
Headache - HISTORIAN Historian: patient - HPI Stated Complaint: Headache, HTN, COPD Chief Complaint: Headache Onset: hours (2) Timing: abrupt, still present New Gradual Onset: Yes Exposure To: none Severity: mild Quality: pain, sharp Associated Symptoms: denies: fever, chills, sweating, nausea, speech problems, weakness, trouble walking, tingling, numbness Preceding Symptoms: denies: visual disturbance Exacerbated By: light Further Comments: yes (She states she started with a headache at work and she continues to have a headache on the left side of her head and behind right eye . she reports increased shortness of breath today she did not take her inhalers to work with her. She denies a fever. She denies any injury to her head) - ROS NEURO/PSYCH: denies: confusion, anxiety EYES/ENT: denies: sore throat, difficulty swallowing, sinus pain CVS/RESP: shortness of breath, cough (COPD ) GI/: denies: abdominal pain, diarrhea, problems urinating, incontinence MS/SKIN/LYMPH: denies: muscle aches, back pain, rash all systems neg except as marked: Yes - PAST HX Medical History: diabetes, hypertension, lung disease Surgical History: other Immunizations: referred to PCP Allergies/Adverse Reactions: Allergies Allergy/AdvReac Type Severity Reaction Status Date / Time No Known Allergies Allergy Verified 07/07/17 17:39 Home Medications: Ambulatory Orders Medication Instructions Recorded Nifedipine [Nifedipine Er] 30 mg PO DAILY u2 01/08/16 Albuterol Sulfate [Ventolin HFN] 3 ml IN TID 07/07/17 - SOCIAL HX Smoking History: non-smoker Alcohol Use: none Drug Use: none - Family HX Family History: none - VITAL SIGNS Vital Signs: Vital Signs Temp Pulse Resp BP Pulse Ox 97.6 F 89 20 151/101 96 07/07/17 16:28 07/07/17 16:28 07/07/17 16:28 07/07/17 16:28 07/07/17 16:28 - REVIEWED ASSESSMENTS Nursing Assessment Reviewed: Yes Vitals Reviewed: Yes Progress - Progress Progress: 1800: in bed post treatment. She is feeling better per report. waiting on labs for further eval. DG ED Results Lab/Radiology - Radiology Radiology Impressions: Examination: CT head without contrast History: Headache Comparison exam: None available Technique: Noncontrast head CT protocol. Findings: Ventricles and sulci are consistent for patient age. Cerebrocerebellar parenchyma demonstrates mild periventricular low attenuation consistent with small vessel disease. No evidence for parenchymal hemorrhage. No evidence for mass or mass effect. No midline shift. No extra axial fluid collections. Partial visualization of the paranasal sinuses demonstrate scattered mucous thickening. Mastoid air cells, orbits, skull and scalp without gross irregularity. Superior falx calcifications. Impression: Mild age related changes. No acute parenchymal process. No hemorrhage. Electronically signed on Jul 07, 2017 5:18:02 PM [employer] by: Alex Smallwood Examination: PA and lateral chest. History: Evaluate lung plascencia. Comparison exam: 20 March 2017 Findings: PA lateral chest demonstrate a normal cardiac and mediastinal silhouette. Stable tortuous aorta. Chronic interstitial changes. No focal infiltrate. No blunting of the costophrenic margins. Bilateral lower lung nipple shadows. Osseous structures are appropriate for age. Impression: Stable chronic interstitial changes. No acute appearing pulmonary process. Electronically signed on Jul 07, 2017 5:12:50 PM INS[employer] by: Alex Smallwood - Orders Orders: ED Orders Category Date Time Status Place IV Lock 1T Care 07/07/17 16:48 Active CHEST 2 VIEW [CHEST P.A.&LAT 2 VIEWS] [RAD] Stat Exams 07/07/17 16:[address] BRAIN W/O CONTRAST Stat Exams 07/07/17 Taken BNP [NT-proBNP] Stat Lab 07/07/17 Ordered CBC/PLATELET/DIFF Routine Lab 07/07/17 Ordered CMP Routine Lab 07/07/17 Ordered 0.9 % Sodium Chloride [Normal Saline] 1,000 ml Med 07/07/17 17:00 Ordered IV Q10H Ipratropium/Albuterol Sulfate [Duoneb] Med 07/07/17 16:48 Discontinued 3 ml NEB NOW ONE methylPREDNISolone SOD SUCC [Solu-MEDROL] Med 07/07/17 18:12 Discontinued 125 mg .ROUTE .STK-MED ONE methylPREDNISolone SOD SUCC [Solu-MEDROL] Med 07/07/17 18:11 Discontinued 125 mg IVP NOW ONE Headache Physical Exam - EXAM General Appearance: no acute distress EENT: no facial swelling, eyes nml inspection, PERRL Neck: normal inspection Respiratory: wheezes, rhonchi CVS: reg. rate & rhythm, heart sounds nml Abdomen: non-tender Skin: color nml, no rash Extremitites: non-tender, normal range of motion - NEURO/PSYCH Higher Functions: alert, oriented x3, nml speech, mood/affect nml Cranial: nml as tested, no evidence of acute CVA Cerebellar: nml as tested Sensorimotor: motor nml, sensation nml Discharge Clincal Impression: Headache Qualifiers: Headache type: unspecified Headache chronicity pattern: acute headache Intractability: not intractable Qualified Code(s): R51 - Headache COPD (chronic obstructive pulmonary disease) Qualifiers: COPD type: COPD with acute exacerbation Qualified Code(s): J44.1 - Chronic obstructive pulmonary disease with (acute) exacerbation Referrals: Vamshi Underwood MD [Primary Care Provider] - 2 Days Comments: Follow up with Dr Underwood in 2 days Return to ER for change or concerning symptoms Medrol dose pack Take inhalers rest Condition: Stable
[2017-07-07] MEDS ORDERED: IPRATROPIUM/ALBUTEROL SULFATE 3 ML AMPUL.NEB NEB ONE (16:48)
[2017-07-07] MEDS ORDERED: 0.9 % SODIUM CHLORIDE 1,000 ML IV SCH (17:00)
[2017-07-07] MEDS ORDERED: methylPREDNISolone SOD SUCC 125 MG/2 ML VIAL IVP ONE (18:11)
[2017-07-07] MEDS ORDERED: methylPREDNISolone SOD SUCC 125 MG/2 ML VIAL ONE (18:12)
[2017-07-07 18:50] LABS: BASOPHILS % 0.5 (0.0-1.5); EOSINOPHILS % 6.2 % (0.0-6.8); MEAN CORPUSCULAR HEMOGLOBIN 26.4 pg (28.0-34.0); MEAN CORPUSCULAR VOLUME 80.7 fl (80.0-100.0); MONOCYTES % 3.9 % (0.0-11.0)
--- NOTE | 2017-07-07 19:08 | Diagnostic Imaging Report ---
IVY CULLEN~ [facility] [address] [facility] [address] [place], [place]. [address] ~ ~ ~ ~ Report Submission Date: Jul 07, 2017 5:18:02 PM CRIB PAD MAKER Patient ~ Study Name: TYREE MONET ~ Date: Jul 07, 2017 5:01:15 PM CRIB PAD MAKER ~ Modality Type: CT\SR Gender: F ~ Description: CT BRAIN W/O CONTRAST : 59 ~ Institution: [facility] Physician: IVY CULLEN ~ ~ ~ Examination: CT head without contrast History:~Headache Comparison exam: None available Technique: Noncontrast head CT protocol. Findings: Ventricles and sulci are consistent for patient age. Cerebrocerebellar parenchyma demonstrates mild periventricular low attenuation consistent with small vessel disease. No evidence for parenchymal hemorrhage. No evidence for mass or mass effect. No midline shift. No extra axial fluid collections. Partial visualization of the paranasal sinuses demonstrate scattered mucous thickening. Mastoid air cells, orbits, skull and scalp without gross irregularity. Superior falx calcifications. Impression: Mild age related changes. No acute parenchymal process. No hemorrhage. ~ Electronically signed on Jul 07, 2017 5:18:02 PM CRIB PAD MAKER by: Alex FLORES
--- NOTE | 2017-07-07 19:08 | Diagnostic Imaging Report ---
IVY CULLEN~ [facility] [address] [facility] [address] [place], [place]. [address] ~ ~ ~ ~ Report Submission Date: Jul 07, 2017 5:12:50 PM K 9 [employer] OFFICER Patient ~ Study Name: TYREE MONET ~ Date: Jul 07, 2017 4:58:23 PM K 9 [employer] ~ Modality Type: CR Gender: F ~ Description: CHEST : 59 ~ Institution: [facility] Physician: IVY CULLEN ~ ~ ~ Examination: PA and lateral chest. History: Evaluate lung plascencia. Comparison exam: 20 March 2017 Findings: PA lateral chest demonstrate a normal cardiac and mediastinal silhouette. Stable tortuous aorta. Chronic interstitial changes. No focal infiltrate.~ No blunting of the costophrenic margins. Bilateral lower lung nipple shadows. ~ Osseous structures are appropriate for age. Impression: Stable chronic interstitial changes. No acute appearing pulmonary process. ~ Electronically signed on Jul 07, 2017 5:12:50 PM K [employer] OFF[employer] by: Alex FLORES
[2017-07-07 19:14] LABS: eGFR (African) 29; eGFR (Non-African) 24
[2017-07-07 21:18] VITALS: BP 167/106
== END 2017-07-07 20:11 | disposition home or self-care (01) ==
LOC: ED 16:28
DX: R51 Headache (principal); J44.1 Chronic obstructive pulmonary disease with (acute) exacerbation
CPT/HCPCS: 70450; 71020; 80053; 83880; 85025; 94640; 96360; 96374; 99283; 99284; J2930; J7030

== ENCOUNTER 2017-09-06 11:16 | Outpatient (CLI) | payer OTHER ==
[2017-09-06 11:43] LABS: BASOPHILS % 0.9 (0.0-1.5); EOSINOPHILS % 5.1 % (0.0-6.8); MEAN CORPUSCULAR HEMOGLOBIN 26.9 pg (28.0-34.0); MEAN CORPUSCULAR VOLUME 81.6 fl (80.0-100.0); NEUTROPHILS # 4.4 # k/uL (1.4-7.7)
== END 2017-09-06 11:30 ==
LOC: LAB 11:16
PROVIDERS: ATTEND Physician Assistant
DX: M79.89 Other specified soft tissue disorders (principal)
CPT/HCPCS: 36415; 85025; 85379

== ENCOUNTER 2017-09-20 15:11 | Outpatient (CLI) | payer OTHER | END 2017-09-20 15:12 | LOC: NEPHRO 15:11 | PROVIDERS: ATTEND Internal Medicine Nephrology | DX: N05.2 Unspecified nephritic syndrome with diffuse membranous glomerulonephritis (principal); N04.9 Nephrotic syndrome with unspecified morphologic changes; I10 Essential (primary) hypertension | CPT/HCPCS: 99213 ==

== ENCOUNTER 2017-09-21 10:11 | Outpatient (CLI) | payer OTHER ==
[2017-09-21 10:52] LABS: BASOPHILS % 0.9 (0.0-1.5); EOSINOPHILS % 6.1 % (0.0-6.8); MEAN CORPUSCULAR VOLUME 83.1 fl (80.0-100.0); MONOCYTES % 3.8 % (0.0-11.0)
[2017-09-21 11:01] LABS: eGFR (African) 33; eGFR (Non-African) 27
[2017-09-22 00:38] LABS: PROTEIN mg/dL 158 mg/dL
== END 2017-09-21 10:12 ==
LOC: LAB 10:11
PROVIDERS: ATTEND Internal Medicine Nephrology
DX: N05.2 Unspecified nephritic syndrome with diffuse membranous glomerulonephritis (principal); N04.9 Nephrotic syndrome with unspecified morphologic changes; I10 Essential (primary) hypertension
CPT/HCPCS: 36415; 80053; 82570; 83970; 84100; 84156; 85025

== ENCOUNTER 2017-09-27 16:11 | Outpatient (CLI) | payer OTHER | END 2017-09-27 16:12 | LOC: NEPHRO 16:11 → LAB 16:12 | PROVIDERS: ATTEND Internal Medicine Nephrology | DX: N05.2 Unspecified nephritic syndrome with diffuse membranous glomerulonephritis (principal); I10 Essential (primary) hypertension | CPT/HCPCS: 36415; 83516 ==

== ENCOUNTER 2017-10-23 20:07 | Emergency (ER) | payer OTHER ==
[2017-10-23] MEDS ORDERED: ASPIRIN 81 MG CHEW TAB PO ONE (20:33)
--- NOTE | 2017-10-23 20:37 | ED Physician Documentation ---
Chest Pain - HISTORIAN Historian: patient - HPI Chief Complaint: Chest Pain Additional Information: chest pain mid ant chest but worst lt post rib cage and worse w/ deep breath - no diaphoresis or sob but has prod cough greenish morrow sputum-dx f.u last week Onset: days ago (last noct) Timing: gradual onset, still present Duration: waxing, waning Last known Well Date: 10/21/17 Last Known Well Time: 17:25 Last known Well Code/Unknown Code: Unknown Context: rest (while in bed) Severity: mild, moderate Quality: pressure, tightness, sharp (in ribs lt post) Chest Pain Radiation: no radiation Chest Pain Signs/Symptoms: denies: nausea, vomiting, diaphoresis Worsened By: deep breaths, movement - ROS CONST: none, recent illness. denies: fever, recent injury GI/: denies: abdominal pain, problems urinating, vomiting, nausea EYES/ENT: problems with vision (rt side partial loss s/p cva) SKIN/ENDO: none NEURO/PSYCH: anxiety - PAST HX MS risk factors: hypertension Neuro deficit: none Lung disease: COPD Surgeries/Procedures: hysterectomy Allergies/Adverse Reactions: Allergies Allergy/AdvReac Type Severity Reaction Status Date / Time No Known Allergies Allergy Verified 07/07/17 17:39 Home Medications: Ambulatory Orders Medication Instructions Recorded Nifedipine [Nifedipine Er] 30 mg PO DAILY u2 01/08/16 Albuterol Sulfate [Ventolin HFN] 3 ml IN TID 07/07/17 - SOCIAL HX Smoking History: non-smoker (x2yrs) Alcohol Use: none Drug Use: none - FAMILY HX Family HX: none - VITAL SIGNS Vital Signs: Vital Signs Temp Pulse Resp BP Pulse Ox 167/106 07/07/17 21:15 - REVIEWED ASSESSMENTS Nursing Assessment Reviewed: Yes Vitals Reviewed: Yes ED Results Lab/Radiology - Orders Orders: ED Orders Category Date Time Status Continuous EKG monitoring Q30M Care 10/23/17 20:33 Ordered Continuous Pulse Oximetry Q30M Care 10/23/17 20:[address] IV Lock 1T Care 10/23/17 20:33 Ordered CHEST 2VIEW [RAD] Stat Exams 10/23/17 Ordered CBC/PLATELET/DIFF Routine Lab 10/23/17 20:33 Ordered CMP Routine Lab 10/23/17 20:33 Ordered TROPONIN I (cTnI) Stat Lab 10/23/17 20:33 Ordered Aspirin Med 10/23/17 20:33 Once 324 mg PO NOW ONE EKG WITH COMPARISON Stat Ther 10/23/17 20:33 Ordered Chest Pain Physical Exam - EXAM General Appearance: mild distress EENT: eye inspection normal Neck: nml inspection, no carotid bruit Respiratory: other (palp pain lt mid post rib cage) CVS: reg. rate & rhythm, no murmur Abdomen: soft, non-tender Skin: warm/dry, normal color. No: cyanosis, diaphoresis, jaundice Extremities: non-tender, normal range of motion Neuro: oriented X3, motor nml, sensation nml, mood/affect nml, cognition normal Discharge Clincal Impression: atypical chest pain, rib pain from frequent cough-hyperinflat, chronic renal insuff Referrals: Vamshi Underwood MD [Primary Care Provider] - 2 Days Comments: pt celina see nephrologists carmelo next-lab reports given to pt Condition: Fair Disposition: 01 HOME, SELF-CARE Decision to Admit: NO Decision Time: 21:40
[2017-10-23 20:48] LABS: BASOPHILS % 0.7 (0.0-1.5); MEAN CORPUSCULAR HEMOGLOBIN 26.5 pg (28.0-34.0); MEAN CORPUSCULAR VOLUME 80.9 fl (80.0-100.0); MONOCYTES % 3.7 % (0.0-11.0); NEUTROPHILS # 3.8 # k/uL (1.4-7.7)
[2017-10-23 21:01] LABS: eGFR (African) 25; eGFR (Non-African) 21
[2017-10-23 21:53] VITALS: BP 165/103
--- NOTE | 2017-10-24 07:00 | Diagnostic Imaging Report ---
SAMEER BOLAÑOS [facility] [address] [facility].[address] [address] Report Submission Date: Oct 23, 2017 9:22:27 PM CDT Patient Study Name: TYREE MONET Date: Oct 23, 2017 8:48:48 PM CDT Modality Type: DX Gender: F Description: CHEST : 59 Institution: [facility] Physician: SAMEER BOLAÑOS Chest 2 views History: Chest pain and cough Findings: The lungs are mildly hyperinflated without infiltrate pleural effusion. Heart size and pulmonary vascularity are normal. A prominent right nipple shadow is present. Osseous structures are intact. Impression: Mild hyperinflation. Electronically signed on Oct 23, 2017 9:22:27 PM CDT by: Anupam FLORES
== END 2017-10-23 21:51 | disposition home or self-care (01) ==
LOC: ED 20:07
DX: R07.9 Chest pain, unspecified (principal); R07.81 Pleurodynia; R05 Cough; N28.9 Disorder of kidney and ureter, unspecified
CPT/HCPCS: 71046; 80053; 84484; 85025; 99285; S1016

== ENCOUNTER 2017-10-25 15:17 | Outpatient (CLI) | payer OTHER | END 2017-10-25 15:19 | LOC: NEPHRO 15:17 | PROVIDERS: ATTEND Internal Medicine Nephrology | DX: N05.2 Unspecified nephritic syndrome with diffuse membranous glomerulonephritis (principal) | CPT/HCPCS: 99213 ==

== ENCOUNTER 2018-05-11 13:46 | Emergency (ER) | payer OTHER ==
[2018-05-11] MEDS ORDERED: methylPREDNISolone SOD SUCC 125 MG/2 ML VIAL IVP ONE (14:09)
[2018-05-11] MEDS ORDERED: IPRATROPIUM/ALBUTEROL SULFATE 3 ML AMPUL.NEB NEB ONE (14:09)
--- NOTE | 2018-05-11 14:24 | ED Physician Documentation ---
Dyspnea - HISTORIAN Historian: patient - HPI Stated Complaint: SOA Chief Complaint: Dyspnea Additional Information: Patient with past medical history of COPD, HTN presents with shortness of breath x 2 days. She states she is nearly out her Advair and had decrease her dose to daily from twice daily to help make it last longer. She has been taking Mucinex-D. She presents to ED with elevated blood pressure. Onset: days ago (2) Duration: continues in ED Initiating Event: out of meds Severity: mild Exacerbated By: exertion Associated Symptoms: denies: chills, fever, chest pain, productive cough Further Comments: no - ROS CONST: no problems EYES/ENT: none GI/: none NEURO/PSYCH: denies: headache MS/SKIN/LYMPH: denies: swollen glands - PAST HX Lung Disease: COPD PE Risk Factors: hypertension Surgeries/Procedures: denies: prior intubation Other History: none Allergies/Adverse Reactions: Allergies Allergy/AdvReac Type Severity Reaction Status Date / Time No Known Allergies Allergy Verified 05/11/18 14:11 Home Medications: Ambulatory Orders Medication Instructions Recorded Nifedipine [Nifedipine Er] 30 mg PO DAILY u2 01/08/16 Albuterol Sulfate [Ventolin HFN] 3 ml IN TID 07/07/17 Albuterol Sulfate [Ventolin HFN] 2.5 mg NEB TID 30 Days ampul.neb 05/11/18 Fluticasone/Salmeterol [Advair 05/11/18 250-50 Diskus] Ipratropium [place] [Atrovent] 0.2 mg NEB TID #90 ampul.neb 05/11/18 predniSONE [Deltasone] 10 mg PO DIRECTED #30 tablet 05/11/18 - SOCIAL HX Smoking History: non-smoker, quit greater than 1 year Alcohol Use: none Drug Use: none - FAMILY HX Family History: none - VITAL SIGNS Vital Signs: Vital Signs Temp Pulse Resp BP Pulse Ox 97.9 F 93 H 14 155/105 96 05/11/18 13:46 05/11/18 13:46 05/11/18 13:46 05/11/18 13:46 05/11/18 13:46 - REVIEWED ASSESSMENTS Nursing Assessment Reviewed: Yes Vitals Reviewed: Yes Progress - Progress Progress: 1527 Patient became dizzy after administration of IV hydralazine. Montitor showed a HR 47, blood pressure 97/48. NS bolus 500ml given. 1607 Patient ambulated to restroom without dizziness or difficulty. HR 76. Blood pressure 126/76. - EKG/XRAY/CT EKG: NSR (70 bpm non specific t wave abnormality) ED Results Lab/Radiology - Radiology Radiology Impressions: PA and lateral chest History: Short of breath. History of COPD PA and lateral chest dated May 11, 2018 is compared with October 23, 2017 The cardiomediastinal silhouette is within normal limits. Pulmonary vascularity is normal. Lungs are clear. The lungs are hyperinflated consistent with COPD. Impression: COPD. No acute cardiopulmonary process. Electronically signed on May 11, 2018 2:48:25 PM PHARMACIST by: Sugar Pereira - Orders Orders: ED Orders Category Date Time Status Place IV Lock 1T Care 05/11/18 14:09 Active CHEST 2VIEW [RAD] Stat Exams 05/11/18 Ordered CBC/PLATELET/DIFF Routine Lab 05/11/18 Ordered CMP Routine Lab 05/11/18 Ordered NT-proBNP Stat Lab 05/11/18 Ordered Ipratropium/Albuterol Sulfate [Duoneb] Med 05/11/18 14:09 Discontinued 3 ml NEB NOW ONE methylPREDNISolone SOD SUCC [Solu-MEDROL] Med 05/11/18 14:09 Discontinued 125 mg IVP NOW ONE Dyspnea Physical Exam - EXAM General Appearance: no acute distress, alert EENT: SHANTA Respiratory: decreased air movement. No: accessory muscle use CVS: reg. rate & rhythm, no murmur Abdomen: non-tender Extremities: non-tender, no edema Neuro/Psych: oriented x3 Discharge Clincal Impression: COPD with acute exacerbation Prescriptions: Albuterol Sulfate [Ventolin HFN] 2.5 mg NEB TID 30 Days ampul.neb Ipratropium [place] [Atrovent] 0.2 mg NEB TID #90 ampul.neb predniSONE [Deltasone] 10 mg PO DIRECTED #30 tablet Referrals: Vamshi Underwood MD [Primary Care Provider] - 2 Days Additional Instructions: Take Mucinex (not Mucinex-D)twice daily. Add a daily allergy medication such as Claritin, Allergra, Zyrtec, Xyxal (avoid Claritin-D, Fiorella-D). Medications with a D at the end of the name contain a decongestant which makes your blood pressure too high. Take benedryl at night if breathing is worse. Call 911 if you become extremely short of breath. Condition: Stable Disposition: 01 HOME, SELF-CARE Decision to Admit: NO Date of Decison to Admit: 05/11/18 Decision Time: 16:25
[2018-05-11] MEDS ORDERED: hydrALAZINE HCL 20 MG/1 ML IVP ONE (14:42)
[2018-05-11 14:54] LABS: MEAN CORPUSCULAR HEMOGLOBIN 25.7 pg (28.0-34.0)
[2018-05-11 14:55] LABS: BASOPHILS % 0.3 (0.0-1.5); EOSINOPHILS % 6.5 % (0.0-6.8); MONOCYTES % 4.8 % (0.0-11.0); NEUTROPHILS # 4.3 # k/uL (1.4-7.7)
[2018-05-11] MEDS ORDERED: 0.9 % SODIUM CHLORIDE 500 ML IV ONE (15:25)
--- NOTE | 2018-05-11 15:36 | Diagnostic Imaging Report ---
DASHANW ABRUE [facility] [address] [facility] [address] [place] [address]. [id number] Report Submission Date: May 11, 2018 2:48:25 PM CORN SHREDDER Patient Study Name: TYREE MONET Date: May 11, 2018 2:12:00 PM CORN SHREDDER Modality Type: DX Gender: F Description: CHEST : 59 Institution: [facility] Physician: DASHAWN ABREU PA and lateral chest History: Short of breath. History of COPD PA and lateral chest dated May 11, 2018 is compared with October 23, 2017 The cardiomediastinal silhouette is within normal limits. Pulmonary vascularity is normal. Lungs are clear. The lungs are hyperinflated consistent with COPD. Impression: COPD. No acute cardiopulmonary process. Electronically signed on May 11, 2018 2:48:25 PM CORN SHREDDER by: Sugar FLORES
[2018-05-11] MEDS: 0.9 % SODIUM CHLORIDE 500 ML IV ONE ×2 (15:39→17:24)
[2018-05-11 17:24] VITALS: BP 139/84
== END 2018-05-11 16:40 | disposition home or self-care (01) ==
LOC: ED 13:46
DX: J44.1 Chronic obstructive pulmonary disease with (acute) exacerbation (principal); I10 Essential (primary) hypertension
CPT/HCPCS: 71046; 80053; 83880; 85025; 93005; J0360; J2930; J7060; 94640; 96365; 96375; 99283; S1016

== ENCOUNTER 2018-09-11 14:44 | Outpatient (CLI) | payer OTHER ==
--- NOTE | 2018-09-11 16:09 | Diagnostic Imaging Report ---
ANTONIO SHI [facility] [address] [facility] [address] [address] Report Submission Date: Sep 11, 2018 3:52:34 PM CDT Patient Study Name: TYREE MONET Date: Sep 11, 2018 3:00:35 PM CDT Modality Type: DX Gender: F Description: ABD COMPLETE : 59 Institution: [facility] Physician: ANTONIO SHI EXAMINATION: ABD COMPLETE HISTORY: ABDOMINAL BLOATING AND PAIN X 6 MONTHS. (Hx) COMPARISON: None FINDINGS: There are no abnormally dilated bowel loops. There is retained stool in the ascending colon and rectum. No pneumoperitoneum or pathological calcification is seen. The visible osseous structures are intact. IMPRESSION: No evidence of bowel obstruction. Retained stool. Electronically signed on Sep 11, 2018 3:52:34 PM CDT by: [place]oacano FLORES
== END 2018-09-11 14:46 ==
LOC: RAD 14:44
PROVIDERS: ATTEND Nurse Practitioner Family
DX: R14.0 Abdominal distension (gaseous) (principal)
CPT/HCPCS: 74019

== ENCOUNTER 2018-10-27 14:57 | Outpatient (CLI) | payer OTHER ==
[2018-10-27 15:16] LABS: APPEARANCE,URINE CLEAR (CLEAR); COLOR,URINE YELLOW (YELLOW); OCCULT BLOOD,URINE 1+ (NEGATIVE); UROBILINOGEN URINE 0.2 Eu (0.2-1.0)
[2018-10-27 15:28] LABS: MEAN CORPUSCULAR HEMOGLOBIN 25.8 pg (28.0-34.0)
[2018-10-27 15:29] LABS: BASOPHILS % 0.5 % (0.0-1.5); EOSINOPHILS % 4.8 % (0.0-6.8); MONOCYTES % 7.2 % (0.0-11.0)
[2018-10-27 15:34] LABS: eGFR (Non-African) 22
== END 2018-10-27 15:00 ==
LOC: LAB 14:57
PROVIDERS: ATTEND Nurse Practitioner Family
DX: R10.84 Generalized abdominal pain (principal)
CPT/HCPCS: 36415; 80053; 81002; 85025; 87086

== ENCOUNTER 2018-11-19 07:44 | Emergency (ER) | payer OTHER ==
[2018-11-19] MEDS ORDERED: IPRATROPIUM/ALBUTEROL SULFATE 3 ML AMPUL.NEB NEB ONE ×2 (07:53→10:09)
[2018-11-19 07:59] LABS: MEAN CORPUSCULAR HEMOGLOBIN 26.6 pg (28.0-34.0)
[2018-11-19 08:00] LABS: BASOPHILS % 0.5 % (0.0-1.5); EOSINOPHILS % 13.4 % (0.0-6.8); MONOCYTES % 7.6 % (0.0-11.0); NEUTROPHILS # 2.7 # k/uL (1.4-7.7)
--- NOTE | 2018-11-19 08:07 | ED Physician Documentation ---
Dyspnea - HISTORIAN Historian: patient - HPI Stated Complaint: shortness of breath Chief Complaint: Dyspnea Additional Information: Patient presents to ED with a 6 day of increasing shortness of breath. Patient has been out of her Trelegy for her COPD for the past month due to cost. She denies chest pain, cough, sputum production or fever. Onset: days ago (6) Duration: continues in ED Initiating Event: out of meds Severity: moderate Exacerbated By: laying flat Associated Symptoms: denies: chills, fever, chest pain, chest discomfort, productive cough - ROS CONST: no problems EYES/ENT: none GI/: denies: vomiting, nausea NEURO/PSYCH: denies: headache MS/SKIN/LYMPH: denies: muscle aches, rash - PAST HX Lung Disease: COPD Cardiac Disease: CHF PE Risk Factors: hypertension Surgeries/Procedures: none Allergies/Adverse Reactions: Allergies Allergy/AdvReac Type Severity Reaction Status Date / Time No Known Allergies Allergy Verified 11/19/18 08:05 Home Medications: Ambulatory Orders Medication Instructions Recorded Nifedipine [Nifedipine Er] 30 mg PO DAILY u2 01/08/16 Fluticasone Propion/Salmeterol 1 puff INH DAILY 05/11/18 [Advair 250-50 Diskus] Azithromycin 250 mg PO DIRECTED #6 tablet 11/19/18 Fluticasone Propion/Salmeterol 1 each INH DAILY #30 ea 11/19/18 [Advair 250-50 Diskus] Ipratropium/Albuterol Sulfate 3 ml IH Q8 #90 ampul.neb 11/19/18 [Duoneb] Spironolactone [Aldactone] 25 mg PO Q2DAY #15 tablet 11/19/18 predniSONE [Deltasone] 10 mg PO DAILY #42 tablet 11/19/18 - SOCIAL HX Smoking History: non-smoker, quit greater than 1 year Alcohol Use: none Drug Use: none - FAMILY HX Family History: none - VITAL SIGNS Vital Signs: Vital Signs Temp Pulse Resp BP Pulse Ox 139/84 05/11/18 17:20 - REVIEWED ASSESSMENTS Nursing Assessment Reviewed: Yes Vitals Reviewed: Yes Progress - Progress Progress: 1008 Patient states she is breathing better. Blood pressure still elevated at 182/115. Hydralazine ordered, however, patient states the last time she received this medication she did not like the way she felt. Will give Clonidine 0.1 mg instead. - EKG/XRAY/CT EKG: NSR Comments: 0825 NSR 73 bpm twave inversion V3 -V5, twave depression V6 ED Results Lab/Radiology - Lab Results Lab Results: Lab Results 11/19/18 07:50 WBC 6.50 K/ul K/ul (4.00-12.00) RBC 4.39 M/ul M/ul (3.90-5.20) Hgb 11.7 g/dL g/dL (11.5-16.0) Hct 35.1 % % (34.5-46.5) MCV 80.0 fl fl (80.0-100.0) MCH 26.6 pg L pg (28.0-34.0) MCHC 33.2 g/dL g/dL (30.0-36.0) RDW 14.3 % % (11.3-14.3) Plt Count 317 K/mm3 K/mm3 (130-400) Neut % (Auto) 42.0 % % (39.0-79.0) Lymph % (Auto) 36.5 % % (16.0-50.0) [place] % (Auto) 7.6 % % (0.0-11.0) Eos % (Auto) 13.4 % H % (0.0-6.8) Baso % (Auto) 0.5 % % (0.0-1.5) Neut # (Auto) 2.7 # k/uL # k/uL (1.4-7.7) Lymph # (Auto) 2.4 # k/uL # k/uL (0.6-4.0) [place] # (Auto) 0.5 # k/uL # k/uL (0.0-0.9) Eos # (Auto) 0.9 # k/uL H # k/uL (0.0-0.6) Baso # (Auto) 0.0 # k/uL # k/uL (0.0-0.5) - Radiology Radiology Impressions: Report Submission Date: November 19, 2018 8:54:40 AM CDT Patient Study Name: TYREE MONET Date: November 19, 2018 8:11:12 AM CDT Modality Type: DX Gender: F Description: CHEST 2VIEW : 59 Institution: [facility] Physician: DASHAWN BOOKER PA and lateral chest History: Short of breath and chest pain PA and lateral chest dated November 19, 2018 is compared with prior radiographs from October and May 2018. Prominent bilateral nipple shadows are present, unchanged. The cardiomediastinal silhouette is within normal limits and unchanged. Pulmonary vascularity is normal. Lungs are clear. Impression: Prominent nipple shadows bilaterally, unchanged compared with prior radiographs. No active disease. Electronically signed on November 19, 2018 8:54:40 AM CDT by: Sugar Pereira - Orders Orders: ED Orders Category Date Time Status Place IV Lock 1T Care 11/19/18 07:51 Active CHEST 2VIEW [RAD] Stat Exams 11/19/18 Ordered CBC/PLATELET/DIFF Routine Lab 11/19/18 07:50 Received CMP Routine Lab 11/19/18 07:50 Received NTBNP Stat Lab 11/19/18 07:50 Received TROPONIN I Stat Lab 11/19/18 07:50 Received Ipratropium/Albuterol Sulfate [Duoneb] Med 11/19/18 07:53 Discontinued 3 ml NEB NOW ONE Oxygen Daily Oxygen 11/19/18 08:00 Ordered Dyspnea Physical Exam - EXAM General Appearance: no acute distress, alert EENT: SHANTA Neck: No: lymphadenopathy Respiratory: no resp. distress, accessory muscle use, decreased air movement CVS: reg. rate & rhythm, no murmur Abdomen: non-tender Skin: color nml Extremities: non-tender, normal range of motion, edema (+1 lower extremity edema bilaterally to knee) Neuro/Psych: oriented x3, CN's nml as tested, motor nml, mood/affect nml Discharge Clincal Impression: COPD with acute exacerbation, Accelerated essential hypertension, Lower extremity edema Prescriptions: Azithromycin 250 mg PO DIRECTED #6 tablet Fluticasone Propion/Salmeterol [Advair 250-50 Diskus] 1 each INH DAILY #30 ea Ipratropium/Albuterol Sulfate [Duoneb] 3 ml IH Q8 #90 ampul.neb predniSONE [Deltasone] 10 mg PO DAILY #42 tablet Spironolactone [Aldactone] 25 mg PO Q2DAY #15 tablet Referrals: Vamshi Underwood MD [Primary Care Provider] - 2 Days Additional Instructions: 1. Take blood pressure medications as prescribed by PCP 2. Take Prednisone as directed 3. Rx sent to [facility] 4. Follow up with PCP within 1 week 5. Return to ER for new or worsening symptoms Condition: Stable Disposition: 01 HOME, SELF-CARE Decision to Admit: NO Date of Decison to Admit: 11/19/18 Decision Time: 10:32
[2018-11-19 08:12] LABS: eGFR (Non-African) 23
[2018-11-19] MEDS ORDERED: methylPREDNISolone SOD SUCC 125 MG/2 ML VIAL IVP ONE (08:34)
[2018-11-19] MEDS ORDERED: FUROSEMIDE 40 MG/4 ML VIAL IVP ONE (08:34)
[2018-11-19] MEDS ORDERED: MONTELUKAST SODIUM 10 MG TABLET PO ONE (08:35)
--- NOTE | 2018-11-19 08:57 | Diagnostic Imaging Report ---
DASHAWN BOOKER [facility] [address] [facility] [address] [place], [place]. [address] Report Submission Date: November 19, 2018 8:54:40 AM CDT Patient Study Name: TYREE MONET Date: November 19, 2018 8:11:12 AM CDT Modality Type: DX Gender: F Description: CHEST 2VIEW : 59 Institution: [facility] Physician: DASHAWN BOOKER PA and lateral chest History: Short of breath and chest pain PA and lateral chest dated November 19, 2018 is compared with prior radiographs from October and May 2018. Prominent bilateral nipple shadows are present, unchanged. The cardiomediastinal silhouette is within normal limits and unchanged. Pulmonary vascularity is normal. Lungs are clear. Impression: Prominent nipple shadows bilaterally, unchanged compared with prior radiographs. No active disease. Electronically signed on November 19, 2018 8:54:40 AM CDT by: Sugar FLORES
[2018-11-19] MEDS ORDERED: hydrALAZINE HCL 20 MG/1 ML IVP ONE (09:50)
[2018-11-19] MEDS ORDERED: cloNIDine HCL 0.1 MG TABLET PO ONE (10:07)
[2018-11-19 10:53] VITALS: BP 175/122
== END 2018-11-19 10:51 | disposition home or self-care (01) ==
LOC: ED 07:44
DX: J44.1 Chronic obstructive pulmonary disease with (acute) exacerbation (principal); I10 Essential (primary) hypertension; R60.0 Localized edema; Z87.891 Personal history of nicotine dependence
CPT/HCPCS: 36415; 71046; 80053; 83880; 84484; 85025; 93005; 94640; 96374; 96375; 99284; 99285; J1940; J2930; S1016

== ENCOUNTER 2019-05-18 13:58 | Emergency (ER) | payer BC, OTHER ==
--- NOTE | 2019-05-18 14:06 | ED Physician Documentation ---
General Adult - HISTORIAN Historian: patient - HPI Stated Complaint: headache Chief Complaint: General Adult Onset: minutes Timing: still present Severity: moderate Further Comments: yes (Pt is a 64 yo aa female with onset of headache while at work at the [employer]. Pain is a pressure on the R side of head and over the R eye. Pain is unlike any previous SAN pain, pt says. No n/v. No change in vision. Pt rates pain as 9/10. Pain began 15 min [employer].) - ROS CONST: no problems EYES/ENT: other (pain over R eye; muscle twitching L eyelid) CVS/RESP: none GI/: none MS/SKIN/LYMPH: none NEURO/PSYCH: headache - PAST HX Past History: COPD, hypertension, other (CVA/TIA) Allergies/Adverse Reactions: Allergies Allergy/AdvReac Type Severity Reaction Status Date / Time No Known Allergies Allergy Verified 05/18/19 14:18 Home Medications: Ambulatory Orders Medication Instructions Recorded Nifedipine [Nifedipine Er] 30 mg PO DAILY u2 01/08/16 Fluticasone Propion/Salmeterol 1 puff INH DAILY 05/11/18 [Advair 250-50 Diskus] Azithromycin 250 mg PO DIRECTED #6 tablet 11/19/18 Fluticasone Propion/Salmeterol 1 each INH DAILY #30 ea 11/19/18 [Advair 250-50 Diskus] Ipratropium/Albuterol Sulfate 3 ml IH Q8 #90 ampul.neb 11/19/18 [Duoneb] Spironolactone [Aldactone] 25 mg PO Q2DAY #15 tablet 11/19/18 predniSONE [Deltasone] 10 mg PO DAILY #42 tablet 11/19/18 Montelukast Sodium [Singulair] 10 mg PO HS #30 tablet 11/20/18 - SOCIAL HX Smoking History: non-smoker - FAMILY HX Family History: No - VITAL SIGNS Vital Signs: Vital Signs Temp Pulse Resp BP Pulse Ox 175/122 11/19/18 10:51 - REVIEWED ASSESSMENTS Nursing Assessment Reviewed: Yes Vitals Reviewed: Yes Progress - Progress Progress: CT head: no acute intracranial process Doppler u/s b/l carotids: no significatn stenosis Nubain 5 mg IV Dexamethasone 4 mg IV improved CRP, sed rate - pending elevated creatinine with modest increase from previous Follow up with your kidney doctor next week as planned. Follow up with your primary provider for headache and results of pending lab tests (CRP and sedimentation rate). General Adult Physical Exam - PHYSICAL EXAM GENERAL APPEARANCE: moderate distress EENT: eye inspection normal, ENT inspection normal, pharynx normal NECK: normal inspection, supple RESPIRATORY: no resp distress, chest non-tender, breath sounds normal CVS: reg rate & rhythm, heart sounds normal ABDOMEN: soft, no organomegaly, normal bowel sounds BACK: normal inspection, no CVA tenderness SKIN: warm/dry, normal color EXTREMITIES: non-tender, normal range of motion, no evidence of injury NEURO: oriented X3, CN's nml as tested, motor nml, sensation nml, other (able to spell WORLD in reverse) Discharge Clincal Impression: headache, elevated creatinine Referrals: Vamshi Underwood MD [Primary Care Provider] - Condition: Stable Disposition: 01 HOME, SELF-CARE Decision to Admit: NO Decision Time: 17:23
[2019-05-18 14:25] LABS: BASOPHILS % 0.3 % (0.0-1.5); NEUTROPHILS # 3.4 # k/uL (1.4-7.7)
[2019-05-18 14:39] LABS: eGFR (Non-African) 18
--- NOTE | 2019-05-18 14:40 | Diagnostic Imaging Report ---
PATIENT MR#: [id number] PATIENT PATIENT NAME: TYREE MONET DATE OF : 1955 REFERRING PHYSICIAN: Rhys Elena EXAM DATE: 05/18/2019 ACCESSION NUMBER: [id number] EXAM DESCRIPTION: CT BRAIN W/O CONTRAST CT brain noncontrast Date of study: CLINICAL HISTORY: ORDER STATES R-SIDED HEADACHE, NO PREVIOUS SIMILAR. PT STATES PRESSURE ON RT SIDE NO KNOWN HISTORY. 05/18/2019 2:31:00 PM User : Shashank Chao ORDER STATES R-SIDED HEADACHE, NO PREVIOUS SIMILAR. PT STATE S PRESSURE ON RT SIDE NO KNOWN HISTORY. (DICOM Hx) (DICOM Hx) TECHNIQUE: 2.5 mm contiguous axial images through the posterior fossa and 5 mm contiguous axial images through t he supratentorial compartment, noncontrast. FINDINGS: There is no evidence of intracranial mass effect, hemorrhage, or acute infarct. The lateral ventricle s are symmetrical and the 4th ventricle is midline without shift. No acute brain parenchymal changes or extra-axial flu id collections are identified. The posterior fossa contents are within normal limits. The calvarium is intact. The visualized sinuses and mastoid air cells are clear. IMPRESSION: No acute intracranial process. Read by: Dr. Rhys Miles Transcribed by: Transcribed Date: Electronically signed by: Dr. Rhys Miles Date signed: 05/18/2019 2:40:09 PM
[2019-05-18] MEDS: NALBUPHINE HCL 10 MG/1 ML IVP ONE (15:31)
--- NOTE | 2019-05-18 16:17 | Diagnostic Imaging Report ---
PATIENT MR#: [id number] PATIENT PATIENT NAME: TYREE MONET DATE OF : 1955 REFERRING PHYSICIAN: Rhys Elena EXAM DATE: 05/18/2019 ACCESSION NUMBER: [id number] EXAM DESCRIPTION: US DUPLEX CAROTID BILATERAL Exam: Bilateral carotid Doppler study. History: Headache. Doppler interrogation and color Doppler imaging of the carotid systems bilaterally are submitted. On the right side some intimal thickening and plaque is identified. The internal carotid artery peak systolic velocity measurements is 63 centimeters/second. The internal carotid artery common carotid artery ratio is 0. 9. Doppler waveforms are normal configuration. Color Doppler imaging reveals no turbinates of flow. Flow is an tegrade in vertebral artery. On the left side mild intimal thickening and plaque is noted. The internal carotid artery peak systo lic velocity measurements is 63 centimeters/second. The internal carotid artery common carotid artery ratio is 1. 1. Doppler waveforms are normal configuration. Color Doppler imaging reveals no turbinates of flow. Flow is an tegrade in vertebral artery. Impression: No hemodynamically significant stenosis. Read by: Dr. Justice Honeycutt Transcribed by: Transcribed Date: Electronically signed by: Dr. Justice Honeycutt Date signed: 05/18/2019 4:17:09 PM
[2019-05-18] MEDS: DEXAMETHASONE SOD PHOS 4 MG/ML VIAL IV ONE (16:49)
[2019-05-18 18:13] VITALS: BP 157/96
== END 2019-05-18 17:45 | disposition home or self-care (01) ==
LOC: ED 13:58
DX: R51 Headache (principal); R79.89 Other specified abnormal findings of blood chemistry
CPT/HCPCS: 70450; 80053; 84443; 85025; 85651; 86140; 93880; 96374; 96375; 99282; 99284; J1100; J2300; 80377; 81002; G0481

== ENCOUNTER 2019-05-22 15:01 | Outpatient (CLI) | payer BC | END 2019-05-22 15:30 | LOC: NEPHRO 15:01 | PROVIDERS: ATTEND Internal Medicine Nephrology | DX: I12.9 Hypertensive chronic kidney disease with stage 1 through stage 4 chronic kidney disease, or unspecified chronic kidney disease (principal); N18.3 Chronic kidney disease, stage 3 (moderate); R30.9 Painful micturition, unspecified | CPT/HCPCS: 99214 ==

== ENCOUNTER 2019-05-29 09:01 | Outpatient (CLI) | payer BC ==
[2019-05-29 09:33] LABS: APPEARANCE,URINE CLEAR (CLEAR); COLOR,URINE YELLOW (YELLOW); OCCULT BLOOD,URINE 3+ (NEGATIVE); PH URINE 6.5 (5.0 - 8.0); UROBILINOGEN URINE 0.2 Eu (0.2-1.0)
[2019-05-29 09:56] LABS: BASOPHILS % 0.1 % (0.0-1.5); NEUTROPHILS # 2.8 # k/uL (1.4-7.7)
[2019-05-29 09:57] LABS: BASOPHILS % 1 % (0-2); HYPOCHROMASIA 1+ (NEGATIVE); SEGMENTED NEUTROPHILS % 53 % (39-79)
[2019-05-29 10:03] LABS: eGFR (Non-African) 18
== END 2019-05-29 09:06 ==
LOC: LAB 09:01
PROVIDERS: ATTEND Internal Medicine Nephrology
DX: I12.9 Hypertensive chronic kidney disease with stage 1 through stage 4 chronic kidney disease, or unspecified chronic kidney disease (principal); N18.3 Chronic kidney disease, stage 3 (moderate); N17.9 Acute kidney failure, unspecified
CPT/HCPCS: 36415; 80053; 81002; 82570; 84156; 85025